=== PATIENT | female | born 1965 | race Caucasian/White ===

== ENCOUNTER 2023-07-15 09:34 | Outpatient (CLI) | payer OTHER, SELFPAY ==
--- NOTE | 2023-07-15 09:36 | CT_ITS ---
FINAL REPORT TECHNIQUE: Thin section axial CT images of the facial bones and sinuses were obtained without contrast. Coronal reformatted images were also obtained.This study was performed with techniques to keep radiation doses as low as reasonably achievable, (ALARA). Individualized dose reduction techniques using automated exposure control or adjustment of mA and/or kV according to the patient''''s size were employed. CLINICAL HISTORY: Sinusitis FINDINGS: There is paradoxical right middle turbinate noted. There is no evidence of mucosal thickening. No fluid levels are identified. The ostiomeatal units have an unremarkable appearance. The nasal septum is in the midline. No fracture or acute bony abnormality is identified. IMPRESSION: No focal abnormality identified of the sinuses. Reviewed, Interpreted and Dictated by Florencio Lott III, MD Transcribed by Stacie Matthews Authenticated and [facility]
== END 2023-07-15 23:59 ==
LOC: RAD 09:36
PROVIDERS: Visit Provider Nurse Practitioner
DX: J32.9 Chronic sinusitis, unspecified (principal); F17.290 Nicotine dependence, other tobacco product, uncomplicated
CPT/HCPCS: 70486

== ENCOUNTER 2024-03-30 14:06 | Outpatient (CLI) | payer OTHER, SELFPAY ==
--- NOTE | 2024-03-30 14:09 | XR_ITS ---
PROCEDURE INFORMATION: Exam: XR Left Clavicle, Complete Exam date and time: 03/30/2024 2:21 PM Age: 58 years old Clinical indication: Pain; Shoulder; Left; Additional info: Pain, left clavicle TECHNIQUE: Imaging protocol: Radiologic exam of the left clavicle. Complete exam. Views: Any number of views. COMPARISON: CR XR CLAVICLE LT 03/30/2024 2:21 PM FINDINGS: Bones/joints: No acute fracture or malalignment. No worrisome lytic or blastic osseous lesion. No appreciable cortical erosion or periosteal reaction. Joint spaces are preserved. Soft tissues: 6 mm calcification projecting over the rotator cuff footplate. IMPRESSION: 1. No acute fracture or malaligment. 2. Calcific tendinitis of the shoulder.
--- NOTE | 2024-03-30 14:09 | XR_ITS ---
PROCEDURE INFORMATION: Exam: XR Chest Exam date and time: 03/30/2024 2:21 PM Age: 58 years old Clinical indication: Pain; Left-sided; Additional info: Chest pain, left upper chest TECHNIQUE: Imaging protocol: Radiologic exam of the chest. Views: 2 views. COMPARISON: CR XR CLAVICLE LT 03/30/2024 2:21 PM FINDINGS: Lungs: Unremarkable. No consolidation. Pleural spaces: Unremarkable. No pleural effusion. No pneumothorax. Heart/Mediastinum: Unremarkable. No cardiomegaly. Bones/joints: Unremarkable. IMPRESSION: No acute findings.
[2024-03-30 17:55] LABS: Erythrocyte Sedimentation Rate 13 mm/hr (0-30)
== END 2024-03-30 23:59 | disposition home or self-care (01) ==
LOC: LAB.DROPOF 14:07
PROVIDERS: PCP Family Medicine; Visit Provider Family Medicine
DX: M89.8X1 Other specified disorders of bone, shoulder (principal); E78.5 Hyperlipidemia, unspecified
CPT/HCPCS: 71046; 73000; 85651; 86140

== ENCOUNTER 2024-04-03 07:35 | Day surgery (SDC) | payer OTHER, SELFPAY ==
[2024-03-28 17:01] VITALS: BMI 21.8
[2024-04-03] MEDS: LACTATED RINGERS 1000ML 1,000 ML 25 ML IV (08:17)
[2024-04-03 08:19] VITALS: BP 103/74; PULSE 70; RESP 18; TEMP 36.2; O2SAT 93
--- NOTE | 2024-04-03 08:44 | EXP.ANES.CKL ---
[facility] Disclaimer: The information contained in this section may have been updated after the patient was seen, as this information can be updated by other users. Medical History Myalgia Left-sided chest wall pain Pain of left clavicle Migraine Menopausal symptoms Screening for colon cancer Osteoarthritis Abnormal mammogram History of cervical cancer Eczema HLD (hyperlipidemia) Surgical History History of loop electrical excision procedure (LEEP) H/O tubal ligation [place] teeth extracted Family History Other Cancer Coronary artery disease Heart attack Hyperlipidemia Hypertension Social History Smoking Status: Current every day smoker tobacco type: e-cigarettes alcohol intake: current alcohol intake frequency: holidays/special occasions only substance use type: denies use current occupational status: employed Travel in the last 8 weeks: None [facility] Anesthesia Checklist Patient Identification Patient Identification: Arm Band Structural Data Admitted From: Home Planned Operative Procedure/s: Colonoscopy Consent for Planned Operative Procedure(s) Verified: Yes Verified Documents: Surgical Consent and History and Physical NPO Status Verified Time NPO: 00:00 Additional verifications Anesthesia Reactions: No Airway Assessment Mallampati Score:: Class II C-Spine Mobility Assessed: Yes TMJ Mobility Assessed: Yes Dentition: Good Dentition Neurological Assessment Level of Consciousness: Awake, Alert and Appropriate Anesthesia Plan Anesthesia Risk discussed: Yes Anesthesia Plan: Verified ASA Class: II Anesthesia Type: MAC
[2024-04-03 09:32] VITALS: O2SAT 93
--- NOTE | 2024-04-03 09:33 | P.HP_ITS ---
History of Present Illness *Admission Date: 04/03/24 *Reason for visit:: Screening *History of present illness: Mrs. Montilla is a 58-year-old female who is here for screening for colon cancer/initial screening. The examination is deemed medically necessary for colonoscopy. The patient has been seen, interviewed and examined prior to the procedure by both myself and the anesthesia provider. [facility] Disclaimer: The information contained in this section may have been updated after the patient was seen, as this information can be updated by other users. Medical History Myalgia Left-sided chest wall pain Pain of left clavicle Migraine Menopausal symptoms Screening for colon cancer Osteoarthritis Abnormal mammogram History of cervical cancer Eczema HLD (hyperlipidemia) Surgical History History of loop electrical excision procedure (LEEP) H/O tubal ligation [place] teeth extracted Family History Other Cancer Coronary artery disease Heart attack Hyperlipidemia Hypertension Social History (Updated 04/03/24 @ 08:45 by Rambo Bacon CRNA) Smoking Status: Current every day smoker tobacco type: e-cigarettes alcohol intake: current alcohol intake frequency: holidays/special occasions only substance use type: denies use current occupational status: employed Travel in the last 8 weeks: None Review of Systems Review of Systems Review of systems (narrative): Negative *Cardiovascular Comments: Negative *Gastrointestinal Comments: Negative *Genitourinary Comments: Negative *Musculoskeletal Comments: Negative *Neurologic Comments: Negative Meds Home Medications and Allergies Home Medications ?Medication ?Instructions ?Recorded ?Confirmed ?Type clobetasol 0.05 % topical cream 1 applic topical DAILY Skin 06/21/23 04/03/24 History Condition levocetirizine 5 mg tablet 5 mg PO DAILY 06/21/23 04/03/24 History meloxicam 15 mg tablet 15 mg PO DAILY 06/21/23 04/03/24 History urea 40 % topical cream 1 applic topical DAILYP PRN Skin 06/21/23 04/03/24 History Condition ezetimibe 10 mg tablet 10 mg PO DAILY #30 tabs 01/10/24 04/03/24 Rx fluticasone propionate 50 2 spray intranasal DAILY #16 grams 02/29/24 04/03/24 Rx mcg/actuation nasal spray,suspension dupilumab 200 mg/1.14 mL 300 mg SQ WEEKLY 03/28/24 04/03/24 History subcutaneous pen injector (Dupixent) sumatriptan succinate 25 mg tablet See Rx Instructions PO .COMPLEX #9 03/30/24 04/03/24 Rx tabs New Prescriptions to Start Prescriptions: Allergies Allergy/AdvReac Type Severity Reaction Status Date / Time No Known Allergies Allergy Verified 03/30/24 13:06 Exam Data for Last 24 hours Vital signs and Labs for Last 24 Hours: Temp Pulse Resp BP Pulse Ox O2 Del Method 97.2 F L 70 18 103/74 L 93 L Room Air 04/03/24 08:19 04/03/24 08:19 04/03/24 08:19 04/03/24 08:19 04/03/24 08:19 04/03/24 08:19 *Routine HEENT Exam Head: Present normocephalic Eye: Present EOMI and PERRL ENT: Present mucous membranes moist *Routine Neck Exam Neck: Present supple *Routine Respiratory Exam Respiratory: Present CTA bilaterally *Routine Cardiovascular Exam Cardiovascular: Present RRR *Routine Abdominal Exam Abdominal: Present soft and normoactive bowel sounds; Absent tenderness *Routine Rectal Exam Rectal:: deferred *Routine Genitalia Exam Genitalia:: deferred *Routine Extremities Exam Extremities: Absent cyanosis, clubbing or edema *Routine Skin Exam Skin: Present warm; Absent rash *Routine Neurological Exam Neurological: Present alert and oriented X3 Assessment and Plan *Assessment and plan (1) Screening for colon cancer: Status: Acute Category: Medical Code(s): Z12.11 - Encounter for screening for malignant neoplasm of colon Plan A/P: 1. Screening for colon cancer is the preprocedural diagnosis. The patient will be anesthetized/sedated using MAC sedation. The patient has been seen and examined. Cardiac and lung assessment prior to the examination is stable. Proceed with planned colonoscopy
--- NOTE | 2024-04-03 09:41 | HMH.PROCNOTE ---
[facility] Procedure Note Date: 04/03/24 Time: 09:59 Procedure Note:: Colonoscopy Procedure Report: Colonoscopy with cold snare polypectomy Endoscopist: Gary Johnson II, MD Referring physician: Dennis Contreras MD Date of Procedure: April 03, 2024 Equipment: Olympus 190 variable stiffness pediatric colonoscope Sedation: MAC sedation Indication: Mrs. Montilla is a 58-year-old female who is here for initial screening colonoscopy. She reports no abdominal pain, weight loss, change in her bowel habits or rectal bleeding. She reports no family history of colon cancer. Procedure: Prior to the procedure, a history and physical exam was performed, and patient's medications and allergies were reviewed. The risks, benefits and alternatives of the sedation and procedure were discussed with the patient. All questions were answered and informed consent was obtained. The patient was brought to the procedure room. Patient identification and proposed procedure were verified by the physician and the nurse. The patient was placed in a left lateral decubitus position and the scope was passed under direct vision. Throughout the procedure, the patient's blood pressure, pulse, and oxygen saturations were monitored continuously. The colonoscopy was accomplished without difficulty. The patient tolerated the procedure well. Findings: On digital rectal examination there was normal rectal tone. There were no external hemorrhoids. The colonoscope was introduced through the anal canal to the rectum and advanced to the cecum. The ileocecal valve and appendiceal orifice were identified. The scope was advanced a short distance into the ileum which appeared grossly normal. The scope was then withdrawn into the colon. There were 2 polyps (4 and 5 mm) in the cecum that were both removed via cold snare polypectomy. The remaining cecum, ascending, transverse, descending, sigmoid and rectum were grossly normal. There were no mucosal abnormalities identified. Upon retroflexion within the rectum there were grade 1 internal hemorrhoids.The preparation was excellent throughout with [place] Preparation Score of 9. The cecal time was 12 minutes. Impression: 1. Diminutive cecal polyps x 2 2. Grade 1 internal hemorrhoids Plan: I will follow-up the polyp histology and recommend repeat surveillance colonoscopy again in 7 years if the polyps are adenomatous. I would continue psyllium bulking fiber supplementation on a maintenance basis.
[2024-04-03 10:04] VITALS: BP 89/45; PULSE 87; RESP 16; TEMP 36.2; O2SAT 100
[2024-04-03 10:14] VITALS: BP 117/82; PULSE 87; RESP 16; O2SAT 99
[2024-04-03 10:24] VITALS: BP 115/76; PULSE 77; RESP 16; O2SAT 98
[2024-04-03 10:31] VITALS: BP 119/71; PULSE 84; RESP 16; O2SAT 100
== END 2024-04-03 10:34 | disposition home or self-care (01) ==
PROVIDERS: PCP Family Medicine; Visit Provider Internal Medicine Gastroenterology
PROC: (CPT 45385; principal; 2024-04-03 09:30)
DX: K63.5 Polyp of colon (principal); K64.0 First degree hemorrhoids; Z12.11 Encounter for screening for malignant neoplasm of colon
CPT/HCPCS: 45385; J7120

== ENCOUNTER 2024-07-04 12:44 | Outpatient (RCR) | payer OTHER, SELFPAY | END 2024-07-04 23:59 | disposition home or self-care (01) | LOC: PT 12:44 | PROVIDERS: Visit Provider Physician Assistant | DX: M75.82 Other shoulder lesions, left shoulder (principal); M19.012 Primary osteoarthritis, left shoulder; S46.812A Strain of other muscles, fascia and tendons at shoulder and upper arm level, left arm, initial encounter | CPT/HCPCS: 97163 ==

== ENCOUNTER 2024-07-21 13:00 | Outpatient (RCR) | payer OTHER, SELFPAY | END 2024-07-21 23:59 | disposition home or self-care (01) | LOC: PT 13:00 | PROVIDERS: Visit Provider Physician Assistant | DX: M75.82 Other shoulder lesions, left shoulder (principal); M19.012 Primary osteoarthritis, left shoulder; S46.812A Strain of other muscles, fascia and tendons at shoulder and upper arm level, left arm, initial encounter | CPT/HCPCS: 20560; 97014; 97110; 97530; G0283 ==

== ENCOUNTER 2024-10-05 13:23 | Outpatient (CLI) | payer OTHER, SELFPAY ==
[2024-10-05 19:15] LABS: Albumin/Globulin Ratio 1.7 (1.1-1.8); Alkaline Phosphatase 59 U/L (38-126); Anion Gap 4.2 mEq/L (5-15); Bilirubin,Total 0.4 mg/dl (0.2-1.3); Blood Urea Nitrogen 20 mg/dl (7-17); Calcium 9.2 mg/dl (8.4-10.2); Carbon Dioxide 29 mmol/L (22.0-30.0); Chloride 105 mmol/L (98-107); Cholesterol 298 mg/dl (140-200); Estimated Glomerular Filt Rate 74 ml/min (>60); GFR (African American) 89 ML/MIN (>60); Globulin 2.4 g/dL (1.3-3.2); Glucose 87 mg/dl (74-100); HDL Cholesterol 100 mg/dl (40-60); Potassium 4.2 mmoL/L (3.5-5.1); Sodium 134 mmol/L (136-145); Total Protein,Serum 6.4 g/dl (6.3-8.2); Triglycerides 137 mg/dl (30-150); VLDL Cholesterol 27 mg/dL (0-40)
[2024-10-05 19:20] LABS: Alanine Aminotransferase 14 U/L (12-78); Aspartate Amino Transferase 20 U/L (14-36)
== END 2024-10-05 23:59 | disposition home or self-care (01) ==
LOC: LAB.DROPOF 10-06 12:46
PROVIDERS: PCP Family Medicine; Visit Provider Family Medicine
DX: E78.5 Hyperlipidemia, unspecified (principal)
CPT/HCPCS: 80053; 80061

== ENCOUNTER 2024-11-20 10:48 | Outpatient (CLI) | payer OTHER, SELFPAY ==
--- NOTE | 2024-11-20 10:51 | XR_ITS ---
FINAL REPORT TECHNIQUE: Chest PA & Lateral CLINICAL HISTORY: jvd, smoker, cough COMPARISON: None FINDINGS: 2 views of the chest were performed. The heart size is normal. The mediastinum is within normal limits. There is no acute cardiopulmonary process. There are no pleural effusions. There is no pneumothorax. The bony thorax appears intact. IMPRESSION: No acute cardiopulmonary process. Reviewed, Interpreted and Dictated by Hoang Antonio MD Transcribed by Kianna Flores Authenticated and [facility]
[2024-11-20 11:33] LABS: Basophils # 0.1 K/mm3 (0-0.2); Basophils % 0.4 % (0.1-2.0); Eosinophils % 0.2 % (0.1-12.0); Hematocrit 41.3 % (37.0-47.0); Immature Granulocytes % 0.7 %; Lymphocytes # 1.4 K/mm3 (0.7-4.5); Lymphocytes % 10.3 % (10-50); Mean Corpuscular HGB Conc 33.9 g/dL (31.8-35.4); Mean Corpuscular Hemoglobin 33.3 pg (27.0-31.2); Mean Corpuscular Volume 98.3 fl (81-99); Monocytes # 0.3 K/mm3 (0.1-1.0); Monocytes % 2.4 % (1.7-9.3); Nucleated Red Blood Cells # 0 10^3/uL; Nucleated Red Blood Cells % 0 %; Platelet Count 500 K/mm3 (142-424); Red Cell Distribution Width 12.9 % (11.5-17.5); Red Cell Distribution Width-SD 45.8 fL
[2024-11-20 11:56] LABS: Chloride 104 mmol/L (98-107); Potassium 4.2 mmoL/L (3.5-5.1); Sodium 141 mmol/L (136-145)
[2024-11-20 11:59] LABS: Anion Gap 9.2 mEq/L (5-15); Blood Urea Nitrogen 23 mg/dl (7-17); Calcium 9.6 mg/dl (8.4-10.2); Carbon Dioxide 32 mmol/L (22.0-30.0); Estimated Glomerular Filt Rate 86 ml/min (>60); GFR (African American) 104 ML/MIN (>60); Glucose 112 mg/dl (74-100)
[2024-11-20 12:30] LABS: Thyroid Stimulating Hormone 1.57 uIU/mL (0.465-4.68)
== END 2024-11-20 23:59 | disposition home or self-care (01) ==
LOC: LAB 10:49
PROVIDERS: PCP Family Medicine; Visit Provider Family Medicine
DX: E78.5 Hyperlipidemia, unspecified (principal); I10 Essential (primary) hypertension; R09.89 Other specified symptoms and signs involving the circulatory and respiratory systems; R06.00 Dyspnea, unspecified
CPT/HCPCS: 36415; 71046; 80048; 84443; 85025

== ENCOUNTER 2024-12-01 09:56 | Emergency (ER) | payer OTHER, SELFPAY ==
[2024-12-01] VITALS (7 sets, daily range): BP systolic 119–158; BP diastolic 74–100; PULSE 58–82; RESP 16–22; TEMP 36.4–36.8; O2SAT 99–100; BMI 21.6
--- NOTE | 2024-12-01 10:03 | ECG_ITS ---
APPROVED REPORT Exam: Resting ECG HR:69 bpm ECG Measurements Heart Rate 69 AXES ND 126 P 63 QRSd 80 QRS 49 QT 394 T 58 QTc 414 Conclusion SINUS RHYTHM WITH SINUS ARRHYTHMIA NORMAL ECG UNCONFIRMED REPORT Electronically signed by : PAUL HANEY, 12/02/2024 06:35:35
--- OUTSIDE RECORDS SUMMARY | 2024-12-01 10:06 | XMS_ITS | Encounter Summary ---
Author Organization [employer] Address [address] [place] [address] Care Team Providers Care Paper Making Machine Operator Name Role Phone Zain López PA-C Unavailable [phone] Dennis Contreras MD Primary Care Provider [phone] Freddie Mcdonald MD Unavailable Encounter Details Date Type Department Care Team (Late st Contact Info) Description 10/11/2024 Orders Only [facility] Orthopedics - [address] [address] Freddie Mcdonald MD [address] [place] [address] Traumatic rupture of supraspinatus tendon of left shoulder, initial encounter; Injury of left shoulder, initial encounter Social History Tobacco Use Types Packs/Day Years Used Date Smoking Tobacco: Former Cigarettes 2009 Smokeless Tobacco: Never Comments:vapes Alcohol Use Standard Drinks/Week Comments Never 0 (1 standard drink = 0.6 oz pur e alcohol) Interpersonal Safety Answer Date Record ed Family or friends hurt you Not on file 06/18 Family or friends insult you Not on file 05/2024 Family or friends threaten you Not on file 0 06/18/2023 Family or friends scream or curse at you Not on file 06/18/2023 Housing Stability Answer Date Recorded Living situation today Not on file Living situation problems Not on file 2023 Family and Community Support Answer Yifan e Recorded Help with Day to Day Activities Not on file 06/18/2023 Feeling Lonely or Isolated Not on file 06/18 Educational Attainment Answer Date Jelani rded Speak language other than Kyrgyz at home Not on file 06/18/2023 Want help with school or training Not on file 06/18/2023 Depression Answer Date Recorded PHQ-2 Risk Not on file 06/18/2023 Disabilities Answer Date Recorded Difficulty concentrating Not on file 024 Difficulty doing errands alone Not on file 0 06/18/2023 Substance Use Answer Date Recorded Used prescription meds for non-medical reasons N ot on file 06/18/2023 Used illegal drugs past 12 months Not on file 06/18/2023 Comments No Sex and Gender Information Value Date Recorded Sex Assigned at Not on file Legal Sex Female 6:40 PM CDT Gender Identity Not on file Sexual Orientation Not on file documented as of this encounter Plan of Treatment Not on file documented as of this encounter Procedures Procedure Name Priority Date/Time Associated Diagnosis Comments MR UPPER EXTREMITY JOINT ONLY WITHOUT IV CONTRAST LEFT Routine 08/25/2024 4:46 PM EDT Traumatic rupture of supraspinatus tendon of left shoulder, initial encounter Injury of left shoulder, initial encounter documented in this encounter Results * MR upper extremity joint only without IV contrast left side (08/25/2024 4:46 PM EDT) Anatomical Region Laterality Modality Upper Extremity, Shoulder, Elbow, Wrist Magnetic Resonance Freddie Mcdonald MD IMG MRI ORDERABLES Final Result documented in this encounter Visit Diagnoses Diagnosis Traumatic rupture of supraspinatus tendon of left shoulder, initial encounter Injury of left shoulder, initial encounter documented in this encounter Care Teams Paper Making Machine Operator Relationship Specialty Start Date End Date Dennis Contreras MD [address] [place] [address] PCP - General Family Medicine 12/02/23 Zain López PA-C [address] [place] [address] Orthopedic Surgery 07/27/23 Freddie Mcdonald MD [address] [place] [address] Sports Medicine 06/26/24 documented as of this encounter
--- OUTSIDE RECORDS SUMMARY | 2024-12-01 10:06 | XMS_ITS | Encounter Summary ---
Author Organization [employer] Address [address] [place] [address] Care Team Providers Care Lining Printer Name Role Phone Adelaide Clements MD Primary Care Provider [phone] Zain López PA-C Unavailable [phone] Dennis Contreras MD Primary Care Provider + [phone] Freddie Mcdonald MD Unavailable Reason for Visit * Reason Comments Medication Refill Encounter Details Date Type Department Care Team (Late st Contact Info) Description 11/19/[address] [facility] Primary Care [address] [place] [address] Nohelia Esquivel APRN [address] [place] [address] Social History Tobacco Use Types Packs/Day Years [...] Recorded Living situation today Not on file 01/12/202 4 Living situation problems Not on file 2023 Family and Community Support Answer Yifan e Recorded Help with Day to Day Activities Not on file 06/18/2023 Feeling Lonely or Isolated Not on file 06/18 Educational Attainment Answer Date Jelani rded Speak language other than Lao at home Not on file 06/18/2023 Want [...] on file documented as of this encounter Visit Diagnoses Not on filedocumented in this encounter Care Teams Lining Printer Relationship Specialty Start Date End Date Adelaide Clements MD PCP - General Family Medicine 01/20/23 12/01/23 Dennis Contreras MD [address] [place] [address] PCP - General Family Medicine 12/02/23 Zain López PA-C [address] [place] [address] Orthopedic Surgery 07/27/23 Freddie Mcdonald MD [address] [place] [address] Sports Medicine 06/26/24 documented as of this encounter
--- OUTSIDE RECORDS SUMMARY | 2024-12-01 10:06 | XMS_ITS | Encounter Summary ---
Author Organization [employer] Address [address] [place] [address] Care Team Providers Care Compliance Testing Analyst Name Role Phone Adelaide Clements MD Primary Care Provider [phone] Zain López PA-C Unavailable [phone] Dennis Contreras MD Primary Care Provider + [phone] Freddie Mcdonald MD Unavailable Reason for Visit * Reason Comments Medication Refill Encounter Details Date Type Department Care Team (Late st Contact Info) Description 02/21/2023 Refill [facility] Primary Care - [address] [address] Hasmukh Workman MD [address] [facility] [address] [place] [address] Social History Tobacco Use Types Packs/Day Years Used Date Smoking Tobacco: Former Cigarettes 2009 Smokeless Tobacco: Never Alcohol Use Standard Drinks/Week Comments Never 0 (1 standard drink = 0.6 oz pur e alcohol) Comments Unknown Sex and Gender Information Value Date Recorded Sex Assigned at Not on file Legal Sex Female 6:40 PM CDT Gender Identity Not on file Sexual Orientation Not on file COVID-19 Exposure Response Date Recorded In the last 10 days, have yo u been in contact with someone who was confirmed or suspected to have Coronavirus/COVID-19? No / Unsure 01/26/2023 2:27 PM EDT documented as of this encounter Plan of Treatment Not on file documented as of this encounter Visit Diagnoses Not on filedocumented in this encounter Care Teams Compliance Testing Analyst Relationship Specialty Start Date End Date Adelaide Clements MD PCP - General Family Medicine 01/20/23 12/01/23 Dennis Contreras MD [address] [place] [address] PCP - General Family Medicine 12/02/23 Zain López PA-C [address] [place] [address] Orthopedic Surgery 07/27/23 Freddie Mcdonald MD [address] [place], [place] [id number] Sports Medicine 06/26/24 documented as of this encounter
--- OUTSIDE RECORDS SUMMARY | 2024-12-01 10:06 | XMS_ITS | Encounter Summary ---
Author Organization [employer] Address [address] [place] [address] Care Team Providers Care Senior Web Engineer Name Role Phone Adelaide Clements MD Primary Care Provider [phone] Zain López PA-C Unavailable [phone] Dennis Contreras MD Primary Care Provider + [phone] Freddie Mcdonald MD Unavailable Reason for Referral * Mammography (Routine) - Closed Specialty Diagnoses / Procedures Referred By Eldaia gagnon Referred To Contact Diagnoses Visit for screening mammogram Procedures MM digital mammo screen with mariangel bilateral Nohelia Esquivel APRN [address] [place] [address] Phone: tel: fax: Referral ID Status Reason Start Date Expiration Date Visits Re quested Visits Authorized [id number] Closed 08/02/2023 01/29/2024 1 1 Encounter Details Date Type Department Care Team (Late st Contact Info) Description 08/02/2023 Outside Orders [facility] Scheduling [address] [place] [address] Nohelia Esquivel APRN [address] [place] [address] Visit for screening mammogram (Primary Dx) Social History Tobacco Use Types Packs/Day Years Used Date Smoking Tobacco: Former Cigarettes 30 2009 Smokeless Tobacco: Never Alcohol Use Standard [...] file 2023 Family and Community Support Answer Yiafn e Recorded Help with Day to Day Activities Not on file 06/18/2023 Feeling Lonely or Isolated Not on file 06/18 Educational Attainment Answer Date Jelani rded Speak language other than Tajik at home Not on file 06/18/2023 Want [...] 12 months Not on file 06/18/2023 Comments Unknown Sex and Gender Information Value Date Recorded Sex Assigned at Not on file Legal Sex Female 6:40 PM CDT Gender Identity Not on file Sexual Orientation Not on file documented as of this encounter Plan of Treatment Not on file documented as of this encounter Results * (ABNORMAL) MM digital mammo screen with mariangel bilateral (10/28/2023 2:08 PM EDT) Anatomical Region Laterality Modality Breast Bilateral Mammography 11/04/2023 4:00 PM EDT Impressions 11/04/2023 4:47 PM EDT FINAL IMPRESSION: Right breast asymmetry. BI-RADS: BI-RADS Category 0: Need Additional Imaging Evaluation and/or Prior Mammograms for Comparison RECOMMENDATIONS: Right diagnostic mammogram. Further evaluation with full field ML and spot compression MLO mariangel HD views is recommended, possibly followed by ultrasound. This report will serve as an order for any recommended procedure(s). A letter including results and recommendations was sent to the patient. Density notification was provided to patients with dense breast tissue pattern. Patient information entered into a reminder system with a target due date for the next mammogram. At our facility, a kiana marker is positioned over a visible skin lesion and a linear marker is used to indicate a scar. A triangular marker is placed on a self reported palpable finding. Note: Mammography does not detect approximately 10-15% of breast cancers. An annual clinical breast exam by the patient's breast care physician and regular monthly self breast exams by the patient are integral parts of breast cancer screening, in addition to annual mammography. A normal mammogram does not completely exclude the presence of breast cancer, especially if there is an abnormal finding on physical exam. When clinically indicated, a biopsy should not be deferred because of a normal mammogram report. Narrative 11/04/2023 4:47 PM EDT PROCEDURE: Bilateral digital screening mammogram with tomosynthesis. REASON FOR EXAM: Routine screening. FAMILY HISTORY: Maternal grandmother with history of breast cancer. COMPARISON STUDY: 3 mammograms between July 2022 and February 2018. FINDINGS: Craniocaudal and mediolateral oblique images were obtained in 2D, C-view, and 3D modes. This examination was reviewed with the benefit of computer-aided detection (CAD). There are scattered areas of fibroglandular density. There is an asymmetry in the superior posterior third of the right breast on MLO view. Nohelia Esquivel APRN [facility] ORDERAB[place] Final Result documented in this encounter Visit Diagnoses Diagnosis Visit for screening mammogram- Primary Visit for screening mammogram documented in this encounter Care Teams Senior Web Engineer Relationship Specialty Start Date End Date Adelaide Clements MD PCP - General Family Medicine 01/20/23 12/01/23 Dennis Contreras MD [address] [place] [address] PCP - General Family Medicine 12/02/23 Zain López PA-C [address] [place] [address] Orthopedic Surgery 07/27/23 Freddie Mcdonald MD [address] [place] [address] Sports Medicine 06/26/24 documented as of this encounter
--- OUTSIDE RECORDS SUMMARY | 2024-12-01 10:06 | XMS_ITS | Encounter Summary ---
Author Organization [employer] Address [address] [place] [address] Care Team Providers Care Visual And Stock Associate Name Role Phone Alejandrina Flores MD Primary Care Provider + Adelaide Clements MD Primary Care Provider [phone] Zain López PA-C Unavailable [phone] Dennis Contreras MD Primary Care Provider + [phone] Freddie Mcdonald MD Unavailable Reason for Referral * Mammography (Routine) - Closed Specialty Diagnoses / Procedures Referred By Eladia t Referred To Contact Diagnoses Encounter for screening mammogram for malignant neoplasm of breast Procedures MM digital mammo screen with mariangel bilateral Alejandrina Flores MD [address] [place] [address] Phone: tel: fax: Referral ID Status Reason Start Date Expiration Date Visits Re quested Visits Authorized [id number] Closed 06/29/2022 12/26/2022 1 1 Encounter Details Date Type Department Care Team (Late st Contact Info) Description 06/29/2022 Outside Orders [facility] Central Scheduling [address] [place] [address] Alejandrina Flores MD [address] [place] [id number] Encounter for screening mammogram for malignant neoplasm of breast (Primary Dx) Social History Tobacco Use Types Packs/Day Years Used Date Smoking Tobacco: Former Cigarettes 1 2009 Smokeless Tobacco: Never Alcohol Use Standard [...] documented as of this encounter Results * MM digital mammo screen with mariangel bilateral (07/17/2022 1:29 PM EST) Anatomical Region Laterality Modality Breast Bilateral Mammography 07/17/2022 5:43 PM EST Impressions 07/17/2022 5:50 PM EST FINAL IMPRESSION: ACR BI-RADS 1: Negative. RECOMMENDATIONS: Annual screening mammography. A letter including results and recommendations was sent to the patient. Density notification was included for patients with pattern 3 or 4 breast tissue. Patient information was entered into a reminder system with a target due date for the next mammogram. At our facility, a [place] marker is positioned over a visible skin lesion and a linear marker is used to indicate a scar. A triangular marker is placed on a self reported palpable finding. Narrative 07/17/2022 5:50 PM EST PROCEDURE: Digital screening mammogram with Digital Breast Tomosynthesis (DBT). REASON FOR EXAM: Routine screening. FAMILY HISTORY: Intermediate Risk family history of breast cancer. COMPARISON STUDY: 2017 from [facility] FINDINGS: Craniocaudal and mediolateral oblique images of both breasts were obtained in 2D and DBT modes. Synthesized views were reconstructed from DBT data. The breast tissue has pattern b (scattered fibroglandular densities). There is no evidence of dominant mass, architectural distortion, or suspicious calcifications. The mammogram was interpreted with the benefit of computer aided detection (CAD). Alejandrina Flores MD IMG MAMMOGRAPHY ORDERABL ES Final Result documented in this encounter Visit Diagnoses Diagnosis Encounter for screening mammogram for malignant neoplasm of breast- Primary Encounter for screening mammogram for malignant neoplasm of breast documented in this encounter Care Teams Visual And Stock Associate Relationship Specialty Start Date End Date Alejandrina Flores MD [address] [place] [address] PCP - General Obstetrics and Gynecology 07/17/2201/05 Adelaide Clements MD [address] [place] [address] PCP - General Family Medicine 01/20/23 12/01/23 Dennis Contreras MD [address] [place] [address] PCP - General Family Medicine 12/02/23 Zain López PA-C [address] [place] [address] Orthopedic Surgery 07/27/23 Freddie Mcdonald MD [address] [place] [address] Sports Medicine 06/26/24 documented as of this encounter
--- OUTSIDE RECORDS SUMMARY | 2024-12-01 10:06 | XMS_ITS | Referral Summary ---
Author Organization [employer] Address [address] [place] [address] Care Team Providers Care Radius Grinder Name Role Phone Zain López PA-C Unavailable [phone] Dennis Contreras MD Primary Care Provider [phone] Freddie Mcdonald MD Unavailable Encounters Date Type Department Care Team Description 10/11/2024 Orders Only [facility] Orthopedics [address] [phone] Freddie Mcdonald MD Traumatic rupture of supraspinatus tendon of left shoulder, initial encounter; Injury of left shoulder, initial encounter 09/28/2024 1:15 PM EDT Office Visit [facility] Orthopedics [facility] [address] [place] [address] Freddie Mcdonald MD Nontraumatic incomplete tear of left rotator cuff (Primary Dx) 09/14/2024 1:30 PM EDT Office Visit [facility] - [facility] [address] [facility] [address] [place] [address] Alejandrina Flores MD Women's annual routine gynecological examination (Primary Dx); Postmenopausal; Hormone replacement therapy (HRT) 08/31/2024 2:15 PM EDT Office Visit [facility] Orthopedics [facility] [address] [place] [address] Freddie Mcdonald MD Nontraumatic incomplete tear of left rotator cuff (Primary Dx) from Last 3 Months Allergies Active Allergy Reactions Criticality Noted Date Comments Latex 09/24/2021 Medications clobetasoL (TEMOVATE) 0.05 % cream Apply topically 2 (two) times daily as needed Apply topically to affected area twice daily.. 60 g 11 3 Active neomycin-bacitra etf-qelhatrcz-xa drocortisone (CORTISPORIN) 3.5-400-10,000 mg-unit/g-1% ophth ointmentIndicati ons:[place] eye disease of right eye Place 1 g into both eyes 2 (two) times daily. 3.5 g 3 3 Active urea (CARMOL) 40 % Crea topical cream Apply topically. 4 Active fluticasone propionate (FLONASE) 50 mcg/actuation nasal sprayIndications :Allergic rhinitis, unspecified seasonality, unspecified trigger SPRAY 1 SPRAY IN EACH NOSTRIL ONCE DAILY 16 mL 4 Active amLODIPine (NORVASC) 5 MG tablet Take 1 tablet (5 mg total) by mouth daily. Active Dupixent Pen 300 mg/2 mL pnij 5 Active Active Problems Problem Noted Date Diagnosed Date Primary osteoarthritis of right knee 07/28/2023 Internal derangement of right knee 07/28/2023 Staphylococcus infection 06/12/2021 Basal cell carcinoma (BCC) 04/17/2021 Solar lentiginosis 04/17/2021 Encounter for general adult medical examination without abnormal findings 01/30/2021 Fatigue 01/30/2021 Intention tremor 01/30/2021 Onychomycosis 01/30/2021 Encounter for screening for malignant neoplasm o f colon 01/30/2021 Arthritis 12/20/2020 Migraine headache 12/20/2020 Encounter for gynecological examination (general) (routine) without abnormal findings 12/20/2020 Hormone replacement therapy 03/27/2020 Abnormal uterine bleeding 07/21/2019 Irritation of vulva 07/21/2019 Postmenopausal bleeding 07/21/2019 Encounter for screening for lipoid disorders Social History Tobacco Use Types Packs/Day Years Used Date Smoking Tobacco: Former Cigarettes 2 30 1 980 - 2010 Smokeless Tobacco: Never Tobacco Cessation:Counseling Given: Not Answered Comments:vapes Alcohol Use Standard Drinks/Week Comments Never [...] Date Jelani rded Speak language other than Czech at home Not on file 06/18/2023 Want [...] on file Sexual Orientation Not on file Last Filed Vital Signs Vital Sign Reading Time Taken Comments Blood Pressure 125/87 09/28/2024 1:15 PM EDT Pulse 73 09/28/2024 1:15 PM EDT Temperature 35.6 C (96 F) 02/03/2023 9:01 AM EDT Respiratory Rate 18 06/22/2024 1:38 PM EST Oxygen Saturation 98% 06/11/2023 11:33 AM EST Inhaled Oxygen Concentration - - Weight 59.4 kg (131 lb) 09/28/2024 1:14 PM EDT Height 162.6 cm (5' 4 ) 09/28/2024 1:14 PM EDT Body Mass Index 22.49 09/28/2024 1:14 PM EDT Plan of Treatment Not on file Procedures Procedure Name Priority Date/Time Associated Diagnosis Comments POCT HEMOGLOBIN Routine 09/14/2024 1:45 PM EDT Women's annual routine gynecological examination MM DIGITAL MAMMO DIAGNOSTIC WITH ALISA RIGHT Routine 06/08/2024 1:51 PM EST Abnormal mammogram LIQUID-BASED PAP SMEAR, SCREENING AP Routine 04/28/2019 12:00 AM EST from Last 3 Months or Most Recently Relevant to Health Maintenance Results * POCT Hemoglobin (09/14/2024 1:45 PM EDT) Hemoglobin 13.6 Blood 09/14/2024 1:45 PM EDT Alejandrina Flores MD POINT OF CARE TEST ORDER ANTONETTE Final Result * MM digital mammo diagnostic with alisa right (06/08/2024 1:51 PM EST) Anatomical Region Laterality Modality Breast Right Mammography 06/08/2024 1:48 PM EST Impressions 06/08/2024 1:51 PM EST FINAL IMPRESSION: Stable mammogram. No findings suspicious for malignancy. Bi-RADS: ACR BI-RADS 2: Benign findings. RECOMMENDATIONS: Yearly screening mammography, due in October 2024 This report will serve as the order for the recommended imaging studies/procedures. At our facility, a [place] marker is positioned over a visible skin lesion and a linear marker is placed over a scar. The results and recommendations were discussed with the patient on the day of her appointment. In addition, a written report in lay terms, including density notification, was given to the patient. Patient information was entered into a reminder system with a target due date for the next mammogram. Narrative 06/08/2024 1:51 PM EST PROCEDURE: Right diagnostic mammogram with Digital Breast Tomosynthesis (DBT). REASON FOR EXAM: 6 month follow-up ordered from the examination in November 2023. Asymmetric tissue in the superior right breast is being followed. FAMILY HISTORY: Intermediate risk family history of breast cancer COMPARISON STUDY: [facility] November 2023 through 2018 FINDINGS: Craniocaudal and mediolateral oblique images of the right breast were obtained in 2D and DBT modes. Synthesized views were reconstructed from DBT data. The breast tissue has pattern b (scattered fibroglandular densities). There is no dominant mass, group of calcifications, or distortion to suggest malignancy. The asymmetric tissue in the superior breast is stable when compared to prior examinations dating back to 2018. This examination was reviewed with the benefit of computer aided detection (CAD). Cynthia Rodriguez MD IMG MAMMOGRAPHY ORDERABLES Barbie l Result * Liquid-based pap smear, screening (04/28/2019 12:00 AM EST) Genital CERVIX UTERI STRUCTURE / Unknown Historical Provider PATHOLOGY/CYTOLOGY ORDERA BLES Final Result [facility] from Last 3 Months or Most Recently Relevant to Health Maintenance Insurance [facility] PLAN [facility] Care Teams Radius Grinder Relationship Specialty Start Date End Date Dennis Contreras MD [address] [place], [place] [id number] PCP - General Family Medicine 12/02/23 Zain López PA-C [address] [place] [address] Orthopedic Surgery 07/27/23 Freddie Mcdonald MD [address] [place] [address] Sports Medicine 06/26/24
--- OUTSIDE RECORDS SUMMARY | 2024-12-01 10:06 | XMS_ITS | Encounter Summary ---
Author Organization [employer] Address [address] [place] [address] Care Team Providers Care Battery Technician Name Role Phone Adelaide Clements MD Primary Care Provider [phone] Zain López PA-C Unavailable [phone] Dennis Contreras MD Primary Care Provider + 1 Freddie Mcdonald MD Unavailable Reason for Visit * Reason Onset Date Comments Medication Refill 11/18/2023 Encounter Details Date Type Department Care Team (Late st Contact Info) Description 11/18/2023 Refill [facility] Primary Care [address] [place] [address] Nohelia Esquivel APRN [address] [place] [address] Social History Tobacco Use Types Packs/Day Years Used Date Smoking Tobacco: Former Cigarettes 30 1 2009 Smokeless Tobacco: Never Comments:vapes Alcohol Use [...] Date Jelani rded Speak language other than Beninese at home Not on file 06/18/2023 Want [...] on filedocumented in this encounter Care Teams Battery Technician Relationship Specialty Start Date End Date Adelaide Clements MD PCP - General Family Medicine 01/20/23 12/01/23 Dennis Contreras MD [address] [place] [address] PCP - General Family Medicine 12/02/23 Zain López PA-C [address] [place] [address] Orthopedic Surgery 07/27/23 Freddie Mcdonald MD [address] [place] [address] Sports Medicine 06/26/24 documented as of this encounter
--- OUTSIDE RECORDS SUMMARY | 2024-12-01 10:06 | XMS_ITS | Encounter Summary ---
Author Organization [employer] Address [address] [place] [address] Care Team Providers Care Healthcare Project Manager Name Role Phone Adelaide Clements MD Primary Care Provider [phone] Zain López PA-C Unavailable [phone] Dennis Contreras MD Primary Care Provider + [phone] Freddie Mcdonald MD Unavailable Reason for Visit * Reason Onset Date Comments Medication Refill 05/24/2023 Encounter Details Date Type Department Care Team (Late st Contact Info) Description 05/24/2023 Refill [facility] Primary Care - [address] [address] Hasmukh Workman MD [address] [facility] [address] [place] [address] Social History Tobacco Use Types Packs/Day Years [...] on filedocumented in this encounter Care Teams Healthcare Project Manager Relationship Specialty Start Date End Date Adelaide Clements MD PCP - General Family Medicine 01/20/23 12/01/23 Dennis Contreras MD [address] [place] [address] PCP - General Family Medicine 12/02/23 Zain López PA-C [address] [place] [address] Orthopedic Surgery 07/27/23 Freddie Mcdonald MD [address] [place], [place] [id number] Sports Medicine 06/26/24 documented as of this encounter
--- OUTSIDE RECORDS SUMMARY | 2024-12-01 10:06 | XMS_ITS | Encounter Summary ---
Author Organization [employer] Address [address] [place] [address] Care Team Providers Care Ostrich Farm Worker Name Role Phone Zain López PA-C Unavailable [phone] Dennis Contreras MD Primary Care Provider + Freddie Mcdonald MD Unavailable Reason for Visit * Reason Comments Medication Refill Encounter Details Date Type Department Care Team (Late st Contact Info) Description 02/16/2024 Refill [facility] Primary Care [address] [place] [address] Nohelia Esquivel APRN [address] [place] [address] Intractable migraine with aura without status migrainosus Social History Tobacco Use Types Packs/Day Years [...] Date Jelani rded Speak language other than Bulgarian at home Not on file 06/18/2023 Want [...] documented as of this encounter Visit Diagnoses Diagnosis Intractable migraine with aura without status migrainosus documented in this encounter Care Teams Ostrich Farm Worker Relationship Specialty Start Date End Date Dennis Contreras MD [address] [place] [address] PCP - General Family Medicine 12/02/23 Zain López PA-C [address] [place] [address] Orthopedic Surgery 07/27/23 Freddie Mcdonald MD [address] [place] [address] Sports Medicine 06/26/24 documented as of this encounter
--- OUTSIDE RECORDS SUMMARY | 2024-12-01 10:06 | XMS_ITS | Clinical Summary ---
Author Organization [employer] Address [address] [place] [address] Care Team Providers Care Perianesthesia Rn Name Role Phone Zain López PA-C Unavailable [phone] Dennis Contreras MD Primary Care Provider [phone] Freddie Mcdonald MD Unavailable Allergies Active Allergy Reactions Criticality Noted Date Comments Latex 09/24/2021 Medications clobetasoL (TEMOVATE) 0.05 % cream Apply topically 2 (two) times daily as needed Apply topically to affected area twice daily.. 60 g 11 3 Active neomycin-bacitra imc-etskkhbmd-gg drocortisone (CORTISPORIN) 3.5-400-10,000 mg-unit/g-1% ophth ointmentIndicati ons:[place] eye disease of right eye Place 1 [...] 07/21/2019 Encounter for screening for lipoid disorders Encounters Date Type Department Care Team Description 10/11/2024 Orders Only [facility] Orthopedics - [address] [address] Fredide Mcdonald MD Traumatic rupture of supraspinatus tendon of left shoulder, initial encounter; Injury of left shoulder, initial encounter 09/28/2024 1:15 PM EDT Office Visit [facility] Orthopedics [address] [address] Freddie Mcdonald MD Nontraumatic incomplete tear of left rotator cuff (Primary Dx) 09/14/2024 1:30 PM EDT Office Visit [facility] - [address] [place] [address] Alejandrina Flores MD Women's annual routine gynecological examination (Primary Dx); Postmenopausal; Hormone replacement therapy (HRT) 08/31/2024 2:15 PM EDT Office Visit [facility] Orthopedics [facility] [address] [place] [address] Freddie Mcdonald MD Nontraumatic incomplete tear of left rotator cuff (Primary Dx) from Last 3 Months Family History Medical History Relation Name Comments Alcohol abuse Father Breast cancer Maternal Grandmother No Known Problem Mother Relation Name Status Comments Father Maternal Grandfather Maternal Grandmother Mother Alive Social History Tobacco Use Types Packs/Day Years Used Date Smoking Tobacco: Former Cigarettes 2 2009 Smokeless Tobacco: Never Tobacco Cessation:Counseling Given: Not [...] Date Jelani rded Speak language other than Cuban at home Not on file 06/18/2023 Want [...] 09/28/2024 1:14 PM EDT Plan of Treatment Health Maintenance Due Date Last Done Comments CT Colonography 1967 Colonoscopy 1967 Colorectal Cancer Screening 1967 FOBT/FIT 1967 Fit-DNA (Cologuard) 1967 Sigmoidoscopy 1967 Depression Screening (12+) 1979 HIV Screening 09/16/1982 Hepatitis C Screening 09/16/1985 DTAP/TDAP/TD VACCINES (1 - Tdap) 09/16/1986 Lipid Panel 09/16/2012 Pneumococcal 50+ years (1 of 1 - PCV) 09/16/2017 Shingles Vaccine (Zoster) (1 of 2) 09/16/2017 Pap Smear 04/28/2022 04/28/2019 COVID-19 VACCINE (1 - 2023-2 5 season) 2024 Influenza Vaccine (Season Ended) 2025 Tobacco Cessation Counseling and Screening (12+) 09/14/2025 09/14/2024 Breast Cancer Screening 06/08/2026 06/08/19 25, 12/02/2023, 10/28/2023, Additional history exists Procedures Procedure Name Priority Date/Time Associated Diagnosis [...] recommended imaging studies/procedures. At our facility, a [place] marker is positioned over a visible skin [...] family history of breast cancer COMPARISON STUDY: [facility] November 2023 through 2017 FINDINGS: Craniocaudal and mediolateral oblique images of [...] Most Recently Relevant to Health Maintenance Insurance [facility] [place] Care Teams Perianesthesia Rn Relationship Specialty Start Date End Date Dennis Contreras MD [address] [place], [place] [id number] PCP - General Family Medicine 12/02/23 Zain López PA-C [address] [place] [address] Orthopedic Surgery 07/27/23 Freddie Mcdonald MD [address] [place] [address] Sports Medicine 06/26/24
--- NOTE | 2024-12-01 10:15 | CT_ITS ---
FINAL REPORT CLINICAL HISTORY: general dizziness FINDINGS: CT NECK ANGIO, WITHOUT AND WITH CONTRAST TECHNIQUE: Thin section axial CT with contrast with multiplanar 3D MIP reconstruction. This study was performed with techniques to keep radiation doses as low as reasonably achievable, (ALARA). Individualized dose reduction techniques using automated exposure control or adjustment of mA and/or kV according to the patient''s size were employed. NASCET criteria and technique was utilized during interpretation. Aortic arch: Arch shows no significant narrowing. Great vessel origins are widely patent. Right carotid: No significant stenosis is seen of the cervical common or internal carotid artery. Left carotid: No significant stenosis is seen of the cervical common or internal carotid artery. Vertebrals: Left vertebral artery is dominant. No significant stenosis is present. IMPRESSION: No significant stenosis of the cervical carotid arteries This study was performed using automated techniques to achieve radiation exposure as low as reasonably Reviewed, Interpreted and Dictated by Karan Ackerman MD Transcribed by Mahsa Menjivar Authenticated and . [facility]
--- NOTE | 2024-12-01 10:15 | CT_ITS ---
FINAL REPORT TECHNIQUE: Noncontrast exam This study was performed with techniques to keep radiation doses as low as reasonably achievable, (ALARA). Individualized dose reduction techniques using automated exposure control or adjustment of mA and/or kV according to the patient''s size were employed. CLINICAL HISTORY: nonspecific dizzy FINDINGS: No abnormal density is seen. Ventricles are normal. There is no hemorrhage. No mass effect is seen. Bone windows show no evidence of fracture. IMPRESSION: No acute findings Reviewed, Interpreted and Dictated by Karan Ackerman MD Transcribed by Mahsa Menjivar Authenticated and [facility]
--- NOTE | 2024-12-01 10:15 | XR_ITS ---
FINAL REPORT CLINICAL HISTORY: dizziness COMPARISON: 11/20/2024 FINDINGS: SINGLE VIEW CHEST: No acute pulmonary opacity is present. There is no evidence of effusion or pneumothorax. Mediastinum is unremarkable. Heart size is normal. IMPRESSION: No acute abnormality. Reviewed, Interpreted and Dictated by Karan Ackerman MD Transcribed by Kianna Flores Authenticated and [facility]
--- NOTE | 2024-12-01 10:15 | CT_ITS ---
FINAL REPORT CLINICAL HISTORY: general dizziness FINDINGS: CTA HEAD TECHNIQUE: Thin section axial CT with contrast with 3D MIP reconstruction This study was performed with techniques to keep radiation doses as low as reasonably achievable, (ALARA). Individualized dose reduction techniques using automated exposure control or adjustment of mA and/or kV according to the patient''s size were employed. No aneurysm is seen. Major intracranial vessels are patent without significant stenosis. . IMPRESSION: Unremarkable This study was performed using automated techniques to achieve radiation exposure as low as reasonably achievable Reviewed, Interpreted and Dictated by Karan Ackerman MD Transcribed by Mahsa Menjivar Authenticated and [facility]
--- NOTE | 2024-12-01 10:17 | ED_ITS ---
Discharge Plan Disposition Patient Disposition: Home, Self-Care Prescriptions Prescriptions: No Action levocetirizine 5 mg tablet 5 mg PO DAILY Qty: 90 3RF sumatriptan succinate 25 mg tablet See Rx Instructions PO .COMPLEX Qty: 9 11RF Rx Instructions: take 1 tab at onset of headache; if no relief may repeat 1 tab after at least 2 hrs; max = 4 tabs/24 hr PO urea 40 % cream 1 applic topical DAILYP PRN (Reason: Skin Condition) hydroxyzine pamoate 50 mg capsule 50 mg PO BID PRN (Reason: itching) Qty: 14 0RF fluticasone propionate 50 mcg/actuation spray,suspension 2 spray intranasal DAILY Qty: 16 5RF clobetasol 0.05 % cream 1 applic topical DAILY Qty: 60 1RF clotrimazole [Athlete's Foot (clotrimazole)] 1 % cream 1 applic topical BID 28 Days Qty: 30 2RF famotidine [Pepcid] 40 mg tablet 40 mg PO DAILY Qty: 7 0RF Dupixent Pen 200 mg/1.14 mL Pen Injector 300 mg SQ WEEKLY Referrals Follow up/Referrals: Nathalie Yen APRN [Primary Care Provider, Family Practice] - See instructions Kevin Vasquez MD [Staff Physician, Cardiology] - See instructions Activity Restrictions/Add. Instructions Additional Instructions/Restrictions: At this time it was felt you are safe to be discharged home. If new or worsening symptoms please do not hesitate to return the emergency department. Please call and schedule appointment with Dr. Vasquez as soon as you are able. Your calcium was barely elevated today and essentially normal and is not concerning to me but we do need to keep an eye on it in the future to make sure it does not continue to rise. Please call and schedule appointment with your family doctor to follow this and your dizziness as if it continues for significant amount of time an MRI may be necessary. Clinical Impressions Clinical Impression: Dizziness Print Language Print Language: French Discharge ED Provider: Martin Mccord General Adult HPI General Chief complaint: Dizziness Stated complaint: light headed, dizzy Time Seen by Provider: 12/01/24 10:00 Mode of Arrival: Wheelchair Source of Information: Patient Description of Symptoms (Recalled from ER Triage Doc. by RN): Patient presents to ED from her PCP's office with c/o nausea and dizziness x1 week, reports feeling faint when walking. Patient reports she recently had A URI which she was on ABX for and has been feeling unwell since. History of Present Illness HPI narrative: Patient is a 59-year-old female with no pertinent comorbidities who presents emergency department for evaluation of dizziness. History is obtained by patient and significant other at bedside. Patient was recently diagnosed with an upper and lower respiratory tract infection and was given antibiotics which she has completed last dose 3 days ago. Over the last 5 days she is experienced generalized dizziness that is worse upon standing. No trauma reported. She presented to her PCP who was concerned for fluid around her heart and sent her here for continued evaluation. No chest pain reported. No other acute complaints at this time. Please note that above description of symptoms, in this electronic medical record under categorization of recalled from ER triage doctor by RN are reflective of an initial nursing assessment, however, is not reflective of my full history and physical exam that was personally taken and clarified. Consequentially, this preceding description of symptoms, which may include the patient's categorized chief complaint in the EMR, do not reflect my personal clinical impression, and the ultimate description of history of present illness and patient stated complaints should be deferred to this section of the note. Unless stated otherwise or congruent with this section of the note, additional signs, symptoms, or incongruence should be interpreted as inaccurate with my clinical impression. Related Data Home Medications ?Medication ?Instructions ?Recorded ?Confirmed urea 40 % topical cream 1 applic topical DAILYP PRN Skin 06/21/23 11/30/24 Condition dupilumab 200 mg/1.14 mL 300 mg SQ WEEKLY 03/28/24 subcutaneous pen injector (Dupixent) Previous Rx's ?Medication ?Instructions ?Recorded fluticasone propionate 50 2 spray intranasal DAILY #16 grams 02/29/24 mcg/actuation nasal spray,suspension sumatriptan succinate 25 mg tablet See Rx Instructions PO .COMPLEX #9 03/30/24 tabs clobetasol 0.05 % topical cream 1 applic topical DAILY Skin 04/20/24 Condition #60 grams clotrimazole 1 % topical cream 1 applic topical BID fu ngus 4 05/11/24 (Athlete's Foot (clotrimazole)) weeks #30 grams levocetirizine 5 mg tablet 5 mg PO DAILY #90 tabs 06/07 09/29 hydroxyzine pamoate 50 mg capsule 50 mg PO BID PRN itc helena #14 caps 11/20/24 famotidine 40 mg tablet (Pepcid) 40 mg PO DAILY #7 tab s 11/23/24 Allergies Allergy/AdvReac Type Severity Reaction Status Date / Time Latex, Natural Rubber Allergy Rash Verified 12/01/24 10:10 [facility] Disclaimer: The information contained in this section may have been updated after the patient was seen, as this information can be updated by other users. Medical History Hypertension Myalgia Left-sided chest wall pain Pain of left clavicle Migraine Menopausal symptoms Screening for colon cancer Osteoarthritis Abnormal mammogram November 2023 History of cervical cancer Eczema HLD (hyperlipidemia) Surgical History History of loop electrical excision procedure (LEEP) H/O tubal ligation [place] teeth extracted Family History Other Cancer Coronary artery disease Heart attack Hyperlipidemia Hypertension Social History Smoking Status: Current every day smoker tobacco type: e-cigarettes alcohol intake: current alcohol intake frequency: holidays/special occasions only substance use type: denies use current occupational status: employed Travel in the last 8 weeks?: None Have you lived/traveled outside US in past 30 days?: No Contact w/someone who lives/traveled outside US past 30 days?: No Exposure to someone with infectious disease in past 14 days?: No Do you have a fever (greater than 100.4 F or 38 C)?: No Have you tested positive for COVID-19?: No Exposed to someone with COVID-19 in past 14 days?: No Do you have a sore throat?: No Do you have a cough?: No Do you have any weakness?: No Do you have any diarrhea?: No Are you experiencing any unusual bleeding?: No Do you have any muscle aches/pain?: No Do you have any abdominal pain?: No Are you experiencing loss of taste or smell?: No ROS Obtained: Yes Systems reviewed as appropriate & no additional complaints except as documented Physical Exam General General appearance: alert and in no apparent distress Head Head exam: atraumatic and normocephalic Eye Eye exam: Present PERRL and EOMI ENT ENT exam: Present mucous membranes moist and TM's normal bilaterally Neck Neck exam: Present normal inspection Chest Chest inspection: Present normal inspection and symmetric chest wall rise Respiratory Respiratory exam: Present normal lung sounds bilaterally; Absent respiratory distress or wheezes Cardiovascular Cardiovascular exam: Present regular rate and normal rhythm Abdominal Exam Abdominal exam: Present soft; Absent tenderness Extremities Exam Extremities exam: Present normal inspection and other (5 out of 5 strength bilateral upper and lower extremities) Neurological Exam Neurological exam: Present alert and CN II-XII intact; Absent motor sensory deficit Psychiatric Psychiatric exam: Present normal affect Skin Skin exam: Present warm and dry Medical Decision Making Medical Records Screening: Per USPSTF and CDC recommendations, given the prevalence of disease in our region, it is our hospital?s policy to screen for HIV and viral Hepatitis for all patients aged 18 and over and those with ongoing risk factors. Kb Inquiry Pt receiving controlled substance: No Vital Signs: 12/01/24 10:00 12/01/24 10:04 12/01/24 10:28 Temperature 98.2 F Temperature Source Oral Pulse Rate 82 78 Pulse Rate [Left] 80 Pulse Rate [Orthostatic Lying] Pulse Rate [Orthostatic Sitting] Pulse Rate [Orthostatic Standing] Respiratory Rate 19 17 Blood Pressure 158/100 H 119/86 Blood Pressure [Orthostatic Lying Right Arm] Blood Pressure [Orthostatic Sitting Right Arm] Blood Pressure [Orthostatic Standing Right Arm] Blood Pressure [Right Radial Artery] 158/100 H Blood Pressure Mean [Right Radial Artery] 119 Blood Pressure Source [Right Radial Artery] Automatic Cuff 02 Sat by Pulse Oximetry 100 100 100 Oxygen Delivery Method Room Air Room Air Room Air 12/01/24 10:30 12/01/24 10:31 12/01/24 10:34 Temperature Temperature Source Pulse Rate 79 67 Pulse Rate [Left] Pulse Rate [Orthostatic Lying] 70 Pulse Rate [Orthostatic Sitting] 68 Pulse Rate [Orthostatic Standing] 75 Respiratory Rate 22 16 Blood Pressure 134/85 134/89 Blood Pressure [Orthostatic Lying Right Arm] 119/86 Blood Pressure [Orthostatic Sitting Right Arm] 134/85 Blood Pressure [Orthostatic Standing Right Arm] 134/89 Blood Pressure [Right Radial Artery] Blood Pressure Mean [Right Radial Artery] Blood Pressure Source [Right Radial Artery] 02 Sat by Pulse Oximetry 99 99 Oxygen Delivery Method Room Air Room Air Lab Data Lab Results 12/01/24 10:09: WBC 10.8, RBC 4.24, Hgb 14.1, Hct 40.5, MCV 95.5, MCH 33.3 H, MCHC 34.8, RDW 13.1, Plt Count 418, MPV 10.3, Neut % (Auto) 78.9, Lymph % (Auto) 14.3, Morris % (Auto) 5.3, Eos % (Auto) 0.7, Baso % (Auto) 0.5, Neut # (Auto) 8.6 H, Lymph # (Auto) 1.6, Morris # (Auto) 0.6, Eos # (Auto) 0.1, Baso # (Auto) 0.1, Sodium 137, Potassium 4.7, Chloride 101, Carbon Dioxide 26, Anion Gap 14.7, BUN 17, Creatinine 0.70, Estimated Creat Clear 80, Estimated GFR 86, Est GFR ( Amer) 104, Glucose 98, Calcium 10.9 H, Magnesium 2.1, Total Bilirubin 0.9, AST 23, ALT 17, Alkaline Phosphatase 87, Total Protein 7.8, Albumin 4.6, Globulin 3.2, Albumin/Globulin Ratio 1.4 12/01/24 10:09 12/01/24 10:09 Orders (Tests/Meds): ED MEDICATIONS Generic Name Dose Route Start Last Admin Trade Name Freq PRN Reason Stop Dose Admin Sodium Chloride 10 ml 12/01/24 11:03 12/01/24 11:05 Sodium Chloride 0.9% 10ml Syr (Rad Only) IV 12/31/24 11:02 10 ml NEEDED PRN Administration Maintain IV Site Discontinued Medications Generic Name Dose Route Start Last Admin Trade Name Freq PRN Reason Stop Dose Admin Lactated Ringer's 1,000 mls @ 999 mls/hr 12/01/24 10:15 12/01/24 10:22 Lactated Ringer's 1000 Ml Bag IV 12/01/24 11:15 999 mls/hr .Q1H1M ONE Administration Iopamidol 75 ml 12/01/24 11:03 12/01/24 11:05 Iopamidol-370 (76%);100ml Bottle IV 12/01/24 11:04 75 ml ONCE ONE Administration Sodium Chloride 50 ml 12/01/24 11:03 12/01/24 11:05 0.9 % Sodium Chloride 50 Ml Vial IV 12/01/24 11:04 50 ml ONCE ONE Administration ORDERS Category Date Time Status CT angio head Stat Cat Scan 12/01/24 10:[address] angio neck Stat Cat Scan 12/01/24 10:[address] head/brain wo con Stat Cat Scan 12/01/24 10:15 Completed CXR --portable [XR chest portable] Stat Exams 12/01/24 10:15 Completed POCUS Point of Care (ER Only) Stat Exams 12/01/24 10:15 Completed CBC w/Auto Diff [Complete Blood Count Auto Diff] Stat Lab 12/01/24 10:09 Completed CMP [Comprehensive Metabolic Panel] Stat Lab 12/01/24 10:09 Completed MG [Magnesium] Stat Lab 12/01/24 10:09 Completed Rapid PCR Covid and Flu A/B Stat Lab 12/01/24 10:47 Ordered ECG Data Tracing #1: Independently inter by me rate is 69, rhythm is regular, axis is normal, no ST elevation in anatomical contiguous leads, QTc 414, no dagger Q waves in the lateral leads, no high degree AV block, no preexcitation, no evidence of type II Brugada's. Medical Decision Narrative: In summary patient is a 59-year-old female past medical history described above who presents emergency department for evaluation of post respiratory infection dizziness. Patient is hemodynamically stable nontoxic-appearing upon arrival, afebrile with a nonfocal neurologic exam. Differential diagnosis includes medication side effect, protracted symptomatology from illness, critical cervical artery stenosis, pericardial effusion, critical electrolyte abnormality, among others. Workup will be conducted in totality with hematologic labs [id number] ultrasound noncontrasted CT scan of the head CTA of the head neck EKG chest x-ray.. Initial inventions include crystalloid bolus. Initial workup reviewed by me, hematologic labs are nonactionable no significant leukocytosis no transfusable anemia no acute MICHAEL or critical electrolyte abnormality. Calcium is mildly elevated and nonactionable. Noncontrasted CT scan of the head informally visualized by me no acute large intracranial hemorrhage or mass effect. Formal read shows no acute pathology. Patient was on cardiac monitoring throughout her stay in the emergency department had no tacky dysrhythmias. Orthostatics unrevealing. Patient has no nystagmus and a nonfocal neurologic exam otherwise [id number] ultrasound shows grossly normal cardiac function without large pericardial effusion. CTA head neck nonactionable no critical stenosis. Given this patient is appropriate for outpatient management at this time will be referred to Dr. Vasquez's office for continued cardiac evaluation. Procedure: Procedure performed was cardiac ultrasound procedure performed by Martin Mccord. Using the phased array probe parasternal long axis and parasternal short axis views were identified. No pericardial effusion left intraocular ejection fraction grossly normal EPSS normal, no D sign on parasternal short. Images were saved to apartment archive and were technically adequate and did not necessitate further imaging patient tolerated the procedure well. Critical Care Critical Care Time Critical Care Time: No
--- NOTE | 2024-12-01 10:17 | PC.NURSE ---
Entered room to obtain a nasal swab, Patient refused
[2024-12-01] MEDS: LACTATED RINGERS 1000ML 1,000 ML 999 ML IV (10:22)
[2024-12-01 10:26] LABS: Magnesium 2.1 mg/dl (1.6-2.3)
--- NOTE | 2024-12-01 10:48 | PC.NURSE ---
Pt refused nasal swab.
--- NOTE | 2024-12-01 10:55 | PC.NURSE ---
Pt left room with radiology for CT
[2024-12-01 10:57] LABS: Basophils # 0.1 K/mm3 (0-0.2); Basophils % 0.5 % (0.1-2.0); Eosinophils # 0.1 Kmm3 (0.0-0.4); Eosinophils % 0.7 % (0.1-12.0); Hematocrit 40.5 % (37.0-47.0); Hemoglobin 14.1 g/dL (12.2-16.2); Immature Granulocytes # 0.03 10^3uL; Immature Granulocytes % 0.3 %; Lymphocytes # 1.6 K/mm3 (0.7-4.5); Lymphocytes % 14.3 % (10-50); Mean Corpuscular HGB Conc 34.8 g/dL (31.8-35.4); Mean Corpuscular Hemoglobin 33.3 pg (27.0-31.2); Mean Corpuscular Volume 95.5 fl (81-99); Mean Platelet Volume 10.3 fl (7.4-10.4); Monocytes # 0.6 K/mm3 (0.1-1.0); Monocytes % 5.3 % (1.7-9.3); Neutrophils # 8.6 K/mm3 (1.8-7.8); Neutrophils % 78.9 % (37.0-80.0); Nucleated Red Blood Cells # 0 10^3/uL; Nucleated Red Blood Cells % 0 %; Platelet Count 418 K/mm3 (142-424); Red Blood Count 4.24 M/mm3 (4.20-5.40); Red Cell Distribution Width 13.1 % (11.5-17.5); Red Cell Distribution Width-SD 45.9 fL; White Blood Count 10.8 K/mm3 (4.8-10.8)
[2024-12-01 11:02] LABS: Alanine Aminotransferase 17 U/L (12-78); Albumin Level 4.6 g/dl (3.5-5.0); Albumin/Globulin Ratio 1.4 (1.1-1.8); Alkaline Phosphatase 87 U/L (38-126); Anion Gap 14.7 mEq/L (5-15); Aspartate Amino Transferase 23 U/L (14-36); Bilirubin,Total 0.9 mg/dl (0.2-1.3); Blood Urea Nitrogen 17 mg/dl (7-17); Calcium 10.9 mg/dl (8.4-10.2); Carbon Dioxide 26 mmol/L (22.0-30.0); Chloride 101 mmol/L (98-107); Creatinine Clearance Estimated 80 mL/min (50-200); Estimated Glomerular Filt Rate 86 ml/min (>60); GFR (African American) 104 ML/MIN (>60); Globulin 3.2 g/dL (1.3-3.2); Glucose 98 mg/dl (74-100); Potassium 4.7 mmoL/L (3.5-5.1); Sodium 137 mmol/L (136-145); Total Protein,Serum 7.8 g/dl (6.3-8.2)
[2024-12-01] MEDS: SODIUM CHLORIDE 0.9% 10ML SYR (RAD ONLY) 10 ML IV (11:05)
[2024-12-01] MEDS: IOPAMIDOL-370 (76%);100ML BOTTLE 75 ML IV (11:05)
[2024-12-01] MEDS: 0.9 % SODIUM CHLORIDE 50 ML VIAL IV (11:05)
--- NOTE | 2024-12-01 11:09 | PC.NURSE ---
Pt returned from CT
== END 2024-12-01 12:23 | disposition home or self-care (01) ==
PROVIDERS: Emergency Provider Emergency Medicine; PCP Family Medicine
DX: R42 Dizziness and giddiness (principal); E78.5 Hyperlipidemia, unspecified; F17.210 Nicotine dependence, cigarettes, uncomplicated
CPT/HCPCS: 70450; 70496; 70498; 71045; 80053; 83735; 85025; 93005; 96360; 99285; J7120; Q9967

== ENCOUNTER 2024-12-04 15:24 | Outpatient (CLI) | payer OTHER, SELFPAY ==
--- OUTSIDE RECORDS SUMMARY | 2024-12-04 15:26 | XMS_ITS | Clinical Summary ---
Author Organization [employer] ([place], [place], [place], [place]) Address [address] [place] [address] Care Team Providers Care Meat Apprentice Name Role Phone Zain López PA-C Unavailable [phone] Dennis Contreras MD Primary Care Provider [phone] Freddie Mcdonald MD Unavailable Allergies Active Allergy Reactions Criticality Noted Date Comments Latex 09/24/2021 Medications clobetasoL (TEMOVATE) 0.05 % cream Apply topically 2 (two) times daily as needed Apply topically to affected area twice daily.. 60 g 11 3 Active neomycin-bacitra ysz-jqwcbtsfo-fl drocortisone (CORTISPORIN) 3.5-400-10,000 mg-unit/g-1% ophth ointmentIndicati ons:[place] eye disease of right eye Place 1 [...] Active Dupixent Pen 300 mg/2 mL pnij 01/06/202 5 Active Active Problems Problem Noted Date [...] Department Care Team Description 10/11/2024 Orders Only [facility] Orthopedics - [address] [id number] Freddie Mcdonald MD Traumatic rupture of supraspinatus tendon of left shoulder, initial encounter; Injury of left shoulder, initial encounter 09/28/2024 1:15 PM EDT Office Visit [facility] [address] [place] [address] Freddie Mcdonald MD Nontraumatic incomplete tear of left rotator cuff (Primary Dx) 09/14/2024 1:30 PM EDT Office 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 - [facility] [address] [facility] [address] [place] [address] Alejandrina Flores MD Women's annual routine gynecological examination (Primary Dx); Postmenopausal; Hormone replacement therapy (HRT) from Last 3 Months Family History Medical History Relation Name Comments Alcohol abuse Father Breast cancer Maternal Grandmother No Known Problem Mother Relation Name Status Comments Father Maternal Grandfather Maternal Grandmother Mother Alive Social History Tobacco Use Types Packs/Day Years Used Date Smoking Tobacco: Former Cigarettes 30 1 - 2009 Smokeless Tobacco: Never Tobacco Cessation:Counseling Given: Not Answered Comments:vapes Alcohol Use Standard Drinks/Week Comments Never 0 (1 standard drink = 0.6 oz pur e alcohol) Family and Community Support Answer Yifan e Recorded Help with Day to Day Activities Not on file 06/18/2023 Feeling Lonely or Isolated Not on file 06/18 Educational Attainment Answer Date Jelani rded Speak language other than Azerbaijani at home Not on file 06/18/2023 Want help with school or training Not on file 06/18/2023 Substance Use Answer Date Recorded Used [...] 09/16/2017 Pap Smear 04/28/2022 04/28/2019 COVID-19 VACCINE (2023-2 5 season) 2024 Influenza Vaccine (Season Ended) 2025 Tobacco Cessation Counseling and Screening (12+) 09/14/2025 09/14/2024 Breast Cancer Screening 06/08/2026 06/08/19, 12/02/2023, 10/28/2023, Additional history exists Procedures Procedure [...] recommended imaging studies/procedures. At our facility, a [place] marker is positioned over a visible skin [...] family history of breast cancer COMPARISON STUDY: [facility] November 2023 through 2017 FINDINGS: Craniocaudal and [...] Most Recently Relevant to Health Maintenance Insurance [facility] Care Teams Meat Apprentice Relationship Specialty Start Date End Date Dennis Contreras MD [address] [place] [address] PCP - General Family Medicine 12/02/23 Zain López PA-C [address] [place] [address] Orthopedic Surgery 07/27/23 Freddie Mcdonald MD [address] [place] [address] Sports Medicine 06/26/24
--- OUTSIDE RECORDS SUMMARY | 2024-12-04 15:26 | XMS_ITS | Referral Summary ---
Author Organization [employer] ([place], [place], [place], [place]) Address [address] [place] [address] Care Team Providers Care Senior Safety Support Manager Name Role Phone Zain López PA-C Unavailable [phone] Dennis Contreras MD Primary Care Provider [phone] Freddie Mcdonald MD Unavailable Encounters Date Type Department Care Team Description 10/11/2024 Orders Only [facility] Orthopedics - [address] [address] Freddie Mcdonald MD Traumatic rupture of supraspinatus tendon of left shoulder, initial encounter; Injury of left shoulder, initial encounter 09/28/2024 1:15 PM EDT Office Visit [facility] Orthopedics - [facility] [address] [place] [address] Freddie Mcdonald MD Nontraumatic incomplete tear of left rotator cuff (Primary Dx) 09/14/2024 1:30 PM EDT Office 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 60 g 11 3 Active neomycin-bacitra xuk-lxwwidaqv-ts drocortisone (CORTISPORIN) 3.5-400-10,000 mg-unit/g-1% ophth ointmentIndicati ons:[place] eye disease of right eye Place 1 [...] Smoking Tobacco: Former Cigarettes 2 30 1 - 2009 Smokeless Tobacco: Never [...] Date Jelani rded Speak language other than Peruvian at home Not on file 06/18/2023 Want [...] recommended imaging studies/procedures. At our facility, a [place] marker is positioned over a visible skin [...] family history of breast cancer COMPARISON STUDY: [facility] November 2023 through 2017 FINDINGS: Craniocaudal [...] Most Recently Relevant to Health Maintenance Insurance [facility] Care Teams Senior Safety Support Manager Relationship Specialty Start Date End Date Dennis Contreras MD [address] [place] [address] PCP - General Family Medicine 12/02/23 Zain López PA-C [address] [place] [address] Orthopedic Surgery 07/27/23 Freddie Mcdonald MD [address] [place] [address] Sports Medicine 06/26/24
--- OUTSIDE RECORDS SUMMARY | 2024-12-04 15:26 | XMS_ITS | Encounter Summary ---
Author Organization [employer] ([place], [place], [place], [place]) Address [address] [place] [address] Care Team Providers Care Desk Clerks Supervisor Name Role Phone Alejandrina Flores MD Primary Care Provider + Adelaide Clements MD Primary Care Provider [phone] Zain López PA-C Unavailable [phone] Dennis Contreras MD Primary Care Provider [phone] Freddie Mcdonald MD Unavailable Reason for Referral * Mammography (Routine) - Closed Specialty Diagnoses / Procedures Referred By Eladia t Referred To Contact Diagnoses Encounter for screening mammogram for malignant neoplasm of breast Procedures MM digital mammo screen with mariangel bilateral Alejandrina Flores MD [address] [facility] [address] [place] [address] Phone: tel: fax: Referral ID Status Reason Start Date Expiration Date Visits Re quested Visits Authorized [id number] Closed 06/29/2022 12/26/2022 1 1 Encounter Details Date Type Department Care Team (Late st Contact Info) Description 06/29/2022 Outside Orders [facility] Central Scheduling [address] [place] [address] Alejandrina Flores MD [address] [facility] [address] [place], [place] [id number] Encounter for screening mammogram for malignant neoplasm of breast (Primary Dx) Social History Tobacco Use Types Packs/Day Years Used Date Smoking Tobacco: Former Cigarettes 2 30 1 - 2009 Smokeless Tobacco: Never Alcohol Use Standard [...] the next mammogram. At our facility, a jackson marker is positioned over a visible skin lesion and a linear marker is used to indicate a scar. A triangular marker is placed on a self reported palpable finding. Narrative 07/17/2022 5:50 PM EST PROCEDURE: Digital screening mammogram with Digital Breast Tomosynthesis (DBT). REASON FOR EXAM: Routine screening. FAMILY HISTORY: Intermediate Risk family history of breast cancer. COMPARISON STUDY: 2017 from [facility] FINDINGS: Craniocaudal and mediolateral oblique images [...] breast documented in this encounter Care Teams Desk Clerks Supervisor Relationship Specialty Start Date End Date Alejandrina Flores MD [address] [facility] [address] [place] [address] PCP - General Obstetrics and Gynecology 07/17/2201/05 Adelaide Clements MD [address] [facility] [address] [place] [address] PCP - General Family Medicine 01/20/23 12/01/23 Dennis Contreras MD [address] [place] [address] PCP - General Family Medicine 12/02/23 Zain López PA-C [address] [place] [address] Orthopedic Surgery 07/27/23 Freddie Mcdonald MD [address] [place] [address] Sports Medicine 06/26/24 documented as of this encounter
--- OUTSIDE RECORDS SUMMARY | 2024-12-04 15:26 | XMS_ITS | Encounter Summary ---
Author Organization [employer] ([place], [place], [place], [place]) Address [address] [place] [address] Care Team Providers Care Gripper Attacher Name Role Phone Adelaide Clements MD Primary Care Provider [phone] Zain López PA-C Unavailable [phone] Dennis Contreras MD Primary Care Provider [phone] Freddie Mcdonald MD Unavailable Reason for Visit * Reason Comments Medication Refill Encounter Details Date Type Department Care Team (Late st Contact Info) Description 11/19/2023 Refill [facility] Primary Care [address] [place] [address] Nohelia Esquivel APRN [address] [facility] [address] [place] [address] Social History Tobacco Use Types [...] Date Jelani rded Speak language other than [place]oth[place] at home Not on file 06/18/2023 Want [...] on filedocumented in this encounter Care Teams Gripper Attacher Relationship Specialty Start Date End Date Adelaide Clements MD PCP - General Family Medicine 01/20/23 12/01/23 Dennis Contreras MD [address] [place], [place] [id number] PCP - General Family Medicine 12/02/23 Zain López PA-C [address] [place] [address] Orthopedic Surgery 07/27/23 Frdedie Mcdonald MD [address] [place] [address] Sports Medicine 06/26/24 documented as of this encounter
--- OUTSIDE RECORDS SUMMARY | 2024-12-04 15:26 | XMS_ITS | Encounter Summary ---
Author Organization [employer] ([place], [place], [place], [place]) Address [address] [place] [address] Care Team Providers Care Fresh Meat Grader Name Role Phone Zain López PA-C Unavailable [phone] Dennis Contreras MD Primary Care Provider + Freddie Mcdonald MD Unavailable Reason for Visit * Reason Comments Medication Refill Encounter Details Date Type Department Care Team (Late st Contact Info) Description 02/16/2024 Refill [facility] Primary Care [address] [place] [address] Nohelia Esquivel APRN [address] [place] [address] Intractable migraine with aura without [...] Date Jelani rded Speak language other than Indonesian at home Not on file 06/18/2023 Want [...] migrainosus documented in this encounter Care Teams Fresh Meat Grader Relationship Specialty Start Date End Date Dennis Contreras MD [address] [place] [address] PCP - General Family Medicine 12/02/23 Zain López PA-C [address] [place] [address] Orthopedic Surgery 07/27/23 Freddie Mcdonald MD [address] [place] [address] Sports Medicine 06/26/24 documented as of this encounter
--- OUTSIDE RECORDS SUMMARY | 2024-12-04 15:27 | XMS_ITS | Encounter Summary ---
Author Organization [email or web address] ([place], [place], [place], [place]) Address [address] [place] [address] Care Team Providers Care Director Of Medical Staff Services Name Role Phone Adelaide Clements MD Primary Care Provider [phone] Zain López PA-C Unavailable [phone] Dennis Contreras MD Primary Care Provider + Freddie Mcdonald MD Unavailable Reason for Visit * Reason Onset Date Comments Medication Refill 11/18/2023 Encounter Details Date Type Department Care Team (Late st Contact Info) Description 11/18/2023 Refill [facility] Primary Care [address] [place] [address] Nohelia Esquivel APRN [address] [facility] [address] [place] [address] Social History Tobacco Use Types [...] Date Jelani rded Speak language other than Urdu at home Not on file 06/18/2023 Want [...] on filedocumented in this encounter Care Teams Director Of Medical Staff Services Relationship Specialty Start Date End Date Adelaide Clements MD PCP - General Family Medicine 01/20/23 12/01/23 Dennis Contreras MD [address] [place] [address] PCP - General Family Medicine 12/02/23 Zain López PA-C [address] [place] [address] Orthopedic Surgery 07/27/23 Freddie Mcdonald MD [address] [place] [address] Sports Medicine 06/26/24 documented as of this encounter
--- OUTSIDE RECORDS SUMMARY | 2024-12-04 15:27 | XMS_ITS | Encounter Summary ---
Author Organization [employer] ([place], [place], [place], [place]) Address [address] [place] [address] Care Team Providers Care Pug Mill Operator Name Role Phone Adelaide Clements MD Primary Care Provider [phone] Zain López PA-C Unavailable [phone] Dennis Contreras MD Primary Care Provider + 9 Freddie Mcdonald MD Unavailable Reason for Visit * Reason Comments Medication Refill Encounter Details Date Type Department Care Team (Late st Contact Info) Description 02/21/2023 Refill [facility] Primary Care - [address] [address] Hasmukh Workman MD [address] [facility] [address] [place] [address] Social History Tobacco Use Types Packs/Day Years [...] on filedocumented in this encounter Care Teams Pug Mill Operator Relationship Specialty Start Date End Date Adelaide Clements MD PCP - General Family Medicine 01/20/23 12/01/23 Dennis Contreras MD [address] [place] [address] PCP - General Family Medicine 12/02/23 Zain López PA-C [address] [place] [address] Orthopedic Surgery 07/27/23 Freddie Mcdonald MD [address] [place] [address] Sports Medicine 06/26/24 documented as of this encounter
--- OUTSIDE RECORDS SUMMARY | 2024-12-04 15:27 | XMS_ITS | Encounter Summary ---
Author Organization [employer] ([place], [place], [place], [place]) Address [address] [place] [address] Care Team Providers Care Vp Informatics Name Role Phone Adelaide Clements MD Primary Care Provider [phone] Zain López PA-C Unavailable [phone] Dennis Contreras MD Primary Care Provider + 5 Fredide Mcdonald MD Unavailable Reason for Visit * Reason Onset Date Comments Medication Refill 05/24/2023 Encounter Details Date Type Department Care Team (Late st Contact Info) Description 05/24/2023 Refill [facility] Primary Care [address] [address] Hasmukh Workman MD [address] [place] [address] Social History Tobacco Use Types Packs/Day Years [...] on filedocumented in this encounter Care Teams Vp Informatics Relationship Specialty Start Date End Date Adelaide Clements MD PCP - General Family Medicine 01/20/23 12/01/23 Dennis Contreras MD [address] [place] [address] PCP - General Family Medicine 12/02/23 Zain López PA-C [address] [place] [address] Orthopedic Surgery 07/27/23 Freddie Mcdonald MD [address] [place] [address] Sports Medicine 06/26/24 documented as of this encounter
--- OUTSIDE RECORDS SUMMARY | 2024-12-04 15:27 | XMS_ITS | Encounter Summary ---
Author Organization [employer] ([place], [place], [place], [place]) Address [address] [place] [address] Care Team Providers Care Mat Cleaning Machine Operator Name Role Phone Zain López PA-C Unavailable [phone] Dennis Contreras MD Primary Care Provider +1 Freddie Mcdonald MD Unavailable Encounter Details Date Type Department Care Team (Late st Contact Info) Description 10/11/2024 Orders Only [facility] Orthopedics - [address] [address] Freddie Mcdonald MD [address] [place] [address] Traumatic rupture of supraspinatus tendon [...] Date Jelani rded Speak language other than Grenadian at home Not on file 06/18/2023 Want [...] encounter documented in this encounter Care Teams Mat Cleaning Machine Operator Relationship Specialty Start Date End Date Dennis Contreras MD [address] [place] [address] PCP - General Family Medicine 12/02/23 Zain López PA-C [address] [place] [address] Orthopedic Surgery 07/27/23 Freddie Mcdonald MD [address] [place] [address] Sports Medicine 06/26/24 documented as of this encounter
--- OUTSIDE RECORDS SUMMARY | 2024-12-04 15:27 | XMS_ITS | Encounter Summary ---
Author Organization [employer] ([place], [place], [place], [place]) Address [address] [place] [address] Care Team Providers Care Die Sinker Name Role Phone Adelaide Clements MD Primary Care Provider [phone] Zain López PA-C Unavailable [phone] Dennis Contreras MD Primary Care Provider + 2 Freddie Mcdonald MD Unavailable Reason for Referral * Mammography (Routine) - Closed Specialty Diagnoses / Procedures Referred By Eladia gagnon Referred To Contact Diagnoses Visit for screening mammogram Procedures MM digital mammo screen with mariangel bilateral Nohelia Esquivel APRN [address] [place] [address] Phone: tel: fax: Referral ID Status Reason Start Date Expiration Date Visits Re quested Visits Authorized [id number] Closed 08/02/2023 01/29/2024 1 1 Encounter Details Date Type Department Care Team (Late st Contact Info) Description 08/02/2023 Outside Orders [facility] Central Scheduling 1 [place] [address] Nohelia Esquivel APRN [address] [place] [address] Visit for screening mammogram (Primary [...] Date Jelani rded Speak language other than Bengali at home Not on file 06/18/2023 Want [...] the next mammogram. At our facility, a united [place] marker is positioned over a visible skin [...] the right breast on MLO view. Nohelia Mcelroydo [facility] MAMMOGRAPHY ORDERABLES Final Result documented in this encounter Visit Diagnoses Diagnosis Visit for screening mammogram- Primary Visit for screening mammogram documented in this encounter Care Teams Die Sinker Relationship Specialty Start Date End Date Adelaide Clements MD PCP - General Family Medicine 01/20/23 12/01/23 Dennis Contreras MD [address] [place] [address] PCP - General Family Medicine 12/02/23 Zain López PA-C [address] [place] [address] Orthopedic Surgery 07/27/23 Freddie Mcdonald MD [address] [place] [address] Sports Medicine 06/26/24 documented as of this encounter
== END 2024-12-04 23:59 | disposition home or self-care (01) ==
LOC: RT 15:25
PROVIDERS: PCP Family Medicine; Visit Provider Nurse Practitioner Family
DX: I49.1 Atrial premature depolarization (principal); I49.3 Ventricular premature depolarization; I47.20 Ventricular tachycardia, unspecified; R55 Syncope and collapse
CPT/HCPCS: 93270

== ENCOUNTER 2024-12-13 12:37 | Outpatient (CLI) | payer OTHER, SELFPAY ==
--- OUTSIDE RECORDS SUMMARY | 2024-12-13 12:39 | XMS_ITS | Clinical Summary ---
Author Organization [employer] ([place], [place], [place], [place]) Address [address] [place] [address] Care Team Providers Care Pocket Setter Name Role Phone Zain López PA-C Unavailable [phone] Dennis Contreras MD Primary Care Provider [phone] Freddie Mcdonald MD Unavailable Allergies Active Allergy Reactions Criticality Noted Date Comments Latex 09/24/2021 Medications clobetasoL (TEMOVATE) 0.05 % cream Apply topically 2 (two) times daily as needed Apply topically to affected area twice daily.. 60 g 11 3 Active neomycin-bacitra grg-kpivsnblf-kh drocortisone (CORTISPORIN) 3.5-400-10,000 mg-unit/g-1% ophth ointmentIndicati ons:[place] eye disease of right eye Place 1 [...] Department Care Team Description 10/11/2024 Orders Only [facility] Orthopedics - [address] [id number] Freddie Mcdonald MD Traumatic rupture of supraspinatus tendon of left shoulder, initial encounter; Injury of left shoulder, initial encounter 09/28/2024 1:15 PM EDT Office Visit [facility] Orthopedics [facility] [address] [place] [address] Freddie Mcdonald MD Nontraumatic incomplete tear of left rotator cuff (Primary Dx) 09/14/2024 1:30 PM EDT Office Visit [facility] UAT TESTER - [facility] [address] [facility] [address] [place] [address] Alejandrina Flores MD Women's annual [...] Date Jelani rded Speak language other than Comoran at home Not on file 06/18/2023 Want [...] VACCINE (2023-2 5 season) 2024 Influenza Vaccine (#1) 2025 Tobacco Cessation Counseling and Screening (12+) [...] recommended imaging studies/procedures. At our facility, a [place] marker is positioned over a visible skin [...] history of breast cancer COMPARISON STUDY: [facility] November 2023 through 2017 FINDINGS: Craniocaudal and [...] Most Recently Relevant to Health Maintenance Insurance [facility] Care Teams Pocket Setter Relationship Specialty Start Date End Date Dennis Contreras MD [address] [place] [address] PCP - General Family Medicine 12/02/23 Zain López PA-C [address] [place] [address] Orthopedic Surgery 07/27/23 Freddie Mcdonald MD [address] [place] [address] Sports Medicine 06/26/24
--- OUTSIDE RECORDS SUMMARY | 2024-12-13 12:39 | XMS_ITS | Encounter Summary ---
Author Organization [employer] ([place], [place], [place], [place]) Address [address] [place] [address] Care Team Providers Care Box Machine Operator Name Role Phone Adelaide Clements MD Primary Care Provider [phone] Zain López PA-C Unavailable [phone] Dennis Contreras MD Primary Care Provider + [phone] Freddie Mcdonald MD Unavailable Reason for Visit * Reason Comments Medication Refill Encounter Details Date Type Department Care Team (Late st Contact Info) Description 11/19/2023 Refill [facility] Primary Care [address] [place] [address] Nohelia Esquivel APRN [address] [facility] [address] [place] [address] Social History Tobacco Use Types [...] Date Jelani rded Speak language other than Estonian at home Not on file 06/18/2023 Want [...] on filedocumented in this encounter Care Teams Box Machine Operator Relationship Specialty Start Date End Date Adelaide Clements MD PCP - General Family Medicine 01/20/23 12/01/23 Dennis Contreras MD [address] [place], [place] [id number] PCP - General Family Medicine 12/02/23 Zain López PA-C [address] [place] [address] Orthopedic Surgery 07/27/23 Freddie Mcdonald MD [address] [place] [address] Sports Medicine 06/26/24 documented as of this encounter
--- OUTSIDE RECORDS SUMMARY | 2024-12-13 12:39 | XMS_ITS | Referral Summary ---
Author Organization [employer] ([place], [place], [place], [place]) Address [address] [place] [address] Care Team Providers Care Type Caster Name Role Phone Zani López PA-C Unavailable [phone] Dennis Contreras MD Primary Care Provider [phone] Freddie Mcdonald MD Unavailable Encounters Date Type Department Care Team Description 10/11/2024 Orders Only [facility] Orthopedics - [address] [address] Freddie Mcdonald MD Traumatic rupture of supraspinatus tendon of left shoulder, initial encounter; Injury of left shoulder, initial encounter 09/28/2024 1:15 PM EDT Office Visit [facility] Orthopedics - [facility] [address] [place] [address] Freddie Mcdonald MD Nontraumatic incomplete tear of left rotator cuff (Primary Dx) 09/14/2024 1:30 PM EDT Office Visit [facility] FIELD HORTICULTURAL SPECIALTY GROWER - [facility] [address] [facility] [address] [place] [address] Alejandrina Flores MD Women's annual routine gynecological examination (Primary Dx); Postmenopausal; Hormone replacement therapy (HRT) from Last 3 Months Allergies Active Allergy Reactions Criticality Noted Date Comments Latex 09/24/2021 Medications clobetasoL (TEMOVATE) 0.05 % cream Apply topically 2 (two) times daily as needed Apply topically to affected area twice daily.. 60 g 11 3 Active neomycin-bacitra xsf-hhbiwfmkt-yh drocortisone (CORTISPORIN) 3.5-400-10,000 mg-unit/g-1% ophth ointmentIndicati ons:[place] eye disease of right eye Place 1 [...] Date Jelani rded Speak language other than Palauan at home Not on file 06/18/2023 Want [...] gynecological examination MM DIGITAL MAMMO DIAGNOSTIC WITH ALIAS RIGHT Routine 06/08/2024 1:51 PM EST Abnormal [...] recommended imaging studies/procedures. At our facility, a [place] tribe marker is positioned over a visible skin [...] family history of breast cancer COMPARISON STUDY: [facility] November 2023 through 2017 FINDINGS: Craniocaudal [...] Most Recently Relevant to Health Maintenance Insurance [facility] Care Teams Type Caster Relationship Specialty Start Date End Date Dennis Contreras MD [address] [place] [address] PCP - General Family Medicine 12/02/23 Zain López PA-C [address] [place] [address] Orthopedic Surgery 07/27/23 Freddie Mcdonald MD [address] [place] [address] Sports Medicine 06/26/24
--- OUTSIDE RECORDS SUMMARY | 2024-12-13 12:39 | XMS_ITS | Encounter Summary ---
Author Organization [employer] ([place], [place], [place], [place]) Address [address] [place] [address] Care Team Providers Care Civil Engineering Project Manager Name Role Phone Alejandrina Flores MD Primary Care Provider + Adelaide Clements MD Primary Care Provider [phone] Zain López PA-C Unavailable [phone] Dennis Contreras MD Primary Care Provider [phone] Freddie Mcdonald MD Unavailable Reason for Referral * Mammography (Routine) - Closed Specialty Diagnoses / Procedures Referred By Eladia t Referred To Contact Diagnoses Encounter for screening mammogram for malignant neoplasm of breast Procedures MM digital mammo screen with mariangel bilateral Alejandrina Flores MD [address] [facility] [address] [place] [address] Phone: tel: fax: Referral ID Status Reason Start Date Expiration Date Visits Re quested Visits Authorized [id number] Closed 06/29/2022 12/26/2022 1 1 Encounter Details Date Type Department Care Team (Late st Contact Info) Description 06/29/[address] [facility] Central Scheduling [address] [place] [address] Alejandrina Flores MD [address] [facility] [address] [place] [address] Encounter for screening mammogram for malignant neoplasm [...] the next mammogram. At our facility, a [place] marker is positioned over a visible skin [...] breast documented in this encounter Care Teams Civil Engineering Project Manager Relationship Specialty Start Date End Date Alejandrina Flores MD [address] [facility] [address] [place] [address] PCP - General Obstetrics and Gynecology 07/17/2201/05 Adelaide Clements MD [address] [facility] [address] [place] [address] PCP - General Family Medicine 01/20/23 12/01/23 Dennis Contreras MD [address] [place] [address] PCP - General Family Medicine 12/02/23 Zain López PA-C [address] [place] [address] Orthopedic Surgery 07/27/23 Freddie Mcdonald MD [address] [place] [address] Sports Medicine 06/26/24 documented as of this encounter
--- OUTSIDE RECORDS SUMMARY | 2024-12-13 12:39 | XMS_ITS | Encounter Summary ---
Author Organization [employer] ([place], [place], [place], [place]) Address [address] [place] [address] Care Team Providers Care Security Installation Technician Name Role Phone Adelaide Clements MD Primary Care Provider [phone] Zain López PA-C Unavailable [phone] Dennis Contreras MD Primary Care Provider + Freddie Mcdonald MD Unavailable Reason for Visit * Reason Onset Date Comments Medication Refill 11/18/2023 Encounter Details Date Type Department Care Team (Late st Contact Info) Description 11/18/2023 Refill [facility] Primary Care [address] [place] [address] Nohelia Esquivel APRN [address] [facility] [address] [place] [address] Social History Tobacco Use Types Packs/Day Years Used Date Smoking Tobacco: Former Cigarettes 2 30 1 2009 Smokeless Tobacco: Never Comments:vapes Alcohol Use Standard Drinks/Week Comments Never 0 (1 standard drink = 0.6 oz pur e alcohol) Family and Community Support Answer Yifan e Recorded Help with Day to Day Activities Not on file 06/18/2023 Feeling Lonely or Isolated Not on file 06/18 Educational Attainment Answer Date Jelani rded Speak language other than Moldovan at home Not on file 06/18/2023 Want [...] on filedocumented in this encounter Care Teams Security Installation Technician Relationship Specialty Start Date End Date Adelaide Clements MD PCP - General Family Medicine 01/20/23 12/01/23 Dennis Contreras MD [address] [place] [address] PCP - General Family Medicine 12/02/23 Zain López PA-C [address] [place] [address] Orthopedic Surgery 07/27/23 Freddie Mcdonald MD [address] [place] [address] Sports Medicine 06/26/24 documented as of this encounter
--- OUTSIDE RECORDS SUMMARY | 2024-12-13 12:39 | XMS_ITS | Encounter Summary ---
Author Organization [employer] ([place], [place], [place], [place]) Address [address] [place] [address] Care Team Providers Care No Bake Molder Name Role Phone Adelaide Clements MD Primary Care Provider [phone] Zain López PA-C Unavailable [phone] Dennis Contreras MD Primary Care Provider + 2 Freddie Mcdonald MD Unavailable Reason for Referral * Mammography (Routine) - Closed Specialty Diagnoses / Procedures Referred By Eladia gagnon Referred To Contact Diagnoses Visit for screening mammogram Procedures MM digital mammo screen with mariangel bilateral Nohelia Esquivel APRN [address] [place] [address] Phone: tel: fax: Referral ID Status Reason Start Date Expiration Date Visits Re quested Visits Authorized [id number] Closed 08/02/2023 01/29/2024 1 1 Encounter Details Date Type Department Care Team (Late st Contact Info) Description 08/02/2023 Outside Orders [facility] Central Scheduling [address] [place] [address] Nohelia Esquivel APRN [address] [place] [address] Visit for screening mammogram (Primary [...] Date Jelani rded Speak language other than Kosovan at home Not on file 06/18/2023 Want [...] the next mammogram. At our facility, a [place] marker is positioned over a visible skin [...] mammogram documented in this encounter Care Teams No Bake Molder Relationship Specialty Start Date End Date Adelaide Clements MD PCP - General Family Medicine 01/20/23 12/01/23 Dennis Contreras MD [address] [place] [address] PCP - General Family Medicine 12/02/23 Zain López PA-C [address] [place] [address] Orthopedic Surgery 07/27/23 Freddie Mcdonald MD [address] [place] [address] Sports Medicine 06/26/24 documented as of this encounter
--- OUTSIDE RECORDS SUMMARY | 2024-12-13 12:39 | XMS_ITS | Encounter Summary ---
Author Organization [employer] ([place], [place], [place], [place]) Address [address] [place] [address] Care Team Providers Care Training Systems Officer Name Role Phone Adelaide Clements MD Primary Care Provider [phone] Zain López PA-C Unavailable [phone] Dennis Contreras MD Primary Care Provider + 2 Freddie Mcdonald MD Unavailable Reason for Visit * Reason Onset Date Comments Medication Refill 05/24/2023 Encounter Details Date Type Department Care Team (Late st Contact Info) Description 05/24/2023 Refill [facility] Primary Care [address] [address] Hasmukh Workman MD [address] [place] [address] Social History Tobacco Use Types Packs/Day Years [...] on filedocumented in this encounter Care Teams Training Systems Officer Relationship Specialty Start Date End Date Adelaide Clements MD PCP - General Family Medicine 01/20/23 12/01/23 Dennis Contreras MD [address] [place] [address] PCP - General Family Medicine 12/02/23 Zain López PA-C [address] [place] [address] Orthopedic Surgery 07/27/23 Freddie Mcdonald MD [address] [place] [address] Sports Medicine 06/26/24 documented as of this encounter
--- OUTSIDE RECORDS SUMMARY | 2024-12-13 12:39 | XMS_ITS | Encounter Summary ---
Author Organization [employer] ([place], [place], [place], [place]) Address [address] [place] [address] Care Team Providers Care Acrobatic Rigger Name Role Phone Zain López PA-C Unavailable [phone] Dennis Contreras MD Primary Care Provider + Freddie Mcdonald MD Unavailable Reason for Visit * Reason Comments Medication Refill Encounter Details Date Type Department Care Team (Late st Contact Info) Description 02/16/2024 Refill [facility] Primary Care [address] [place] [address] Nohleia Esquivel APRN [address] [place] [address] Intractable migraine with aura without status migrainosus Social History Tobacco Use Types Packs/Day Years Used Date Smoking Tobacco: Former Cigarettes 2 2009 Smokeless Tobacco: Never Comments:vapes Alcohol Use Standard Drinks/Week Comments Never 0 (1 standard drink = 0.6 oz pur e alcohol) Family and Community Support Answer Yifan e Recorded Help with Day to Day Activities Not on file 06/18/2023 Feeling Lonely or Isolated Not on file 06/18 Educational Attainment Answer Date Jelani rded Speak language other than Sri Lankan at home Not on file 06/18/2023 Want [...] migrainosus documented in this encounter Care Teams Acrobatic Rigger Relationship Specialty Start Date End Date Dennis Contreras MD [address] [place] [address] PCP - General Family Medicine 12/02/23 Zain López PA-C [address] [place] [address] Orthopedic Surgery 07/27/23 Freddie Mdconald MD [address] [place] [address] Sports Medicine 06/26/24 documented as of this encounter
--- OUTSIDE RECORDS SUMMARY | 2024-12-13 12:39 | XMS_ITS | Encounter Summary ---
Author Organization [employer] ([place], [place], [place], [place]) Address [address] [place] [address] Care Team Providers Care Crm Architect Name Role Phone Adelaide Clements MD Primary Care Provider [phone] Zain López PA-C Unavailable [phone] Dennis Contreras MD Primary Care Provider + 1 Freddie Mcdonald MD Unavailable Reason for Visit * Reason Comments Medication Refill Encounter Details Date Type Department Care Team (Late st Contact Info) Description 02/21/2023 Refill [facility] Primary Care - [address] [address] Hasmukh Workman MD [address] [facility] [address] [place] [address] Social History Tobacco Use Types Packs/Day Years [...] on filedocumented in this encounter Care Teams Crm Architect Relationship Specialty Start Date End Date Adelaide Clements MD PCP - General Family Medicine 01/20/23 12/01/23 Dennis Contreras MD [address] [place] [address] PCP - General Family Medicine 12/02/23 Zain López PA-C [address] [place] [address] Orthopedic Surgery 07/27/23 Freddie Mcdonald MD [address] [place] [address] Sports Medicine 06/26/24 documented as of this encounter
--- NOTE | 2024-12-13 13:00 | CA_ITS ---
APPROVED REPORT EXAM: Comprehensive 2D, Doppler, and color-flow Echocardiogram Telesales Supervisor: Bettina Shah CRT Ht: 5 ft 4 in Wt: 127lbs BSA: 1.61 BP: 165/97 mmHg Indications: jugular venous distention 2D Dimensions LA Volume 36.00 mL LA Volume Index 21.80 mL/m2 (M/F) 16-34 M-Mode Dimensions RVDd 1.87 cm (0.9-2.6) LA Diam 2.74 cm (1.9-4.0) LVDd 4.47 cm (3.5-5.7) LVDs 2.42 cm (3.5-5.7) IVSd 1.29 cm (0.6-1.1) PWd 0.66 cm (0.6-1.1) EF (Teich) 77.40% FS 45.90% EDV (Teich) 91.00 mL TAPSE 2.09 (<1.7) ESV (Teich) 20.60 mL LV Diastology E Decel Time 227 (160-240 msec) E/A Ratio 1.13 MED A' 10.50 cm/s LAT A' 10.00 cm/s Aortic Valve AI PHT 744.00 ms AO Peak GR. 4.90 mmHg Mitral Valve MV A Velocity 84.0 (40-130 cm/s) E/A Ratio 1.13 Pulmonary Valve PV Peak Velocity 120.0 (50-150 cm/s) Tricuspid Valve TR P. Velocity 230.00 cm/s RAP Estimate 10.00 mmHg RVSP 31.20 mmHg Left Ventricle The left ventricle is normal size. The left ventricular systolic function is normal. The left ventricular ejection fraction is within the normal range. There is normal left ventricular wall thickness. There is normal LV segmental wall motion. The left ventricular diastolic function is normal. LVEF is 55%. Right Ventricle The right ventricle is normal size. The right ventricular systolic function is normal. Atria Left atrium is mildly dilated. Right atrium is mildly dilated. There is no Doppler evidence of interatrial shunt. Aortic Valve The aortic valve opens well. There is no aortic valvular stenosis. No aortic regurgitation is present. Mitral Valve The mitral valve is normal in structure. No evidence of mitral valve stenosis. Mild mitral regurgitation. Tricuspid Valve Tricuspid valve is grossly normal in structure and function. Mild tricuspid regurgitation. RVSP is 20-25 mmHg. Pulmonic Valve The pulmonary valve is normal in structure. Trace pulmonic regurgitation. Great Vessels The aortic root is normal in size. IVC is normal in size and collapses >50% with inspiration. Pericardium There is no pericardial effusion. Other Information Study Quality: Adequate Conclusion Normal biventricular systolic function. Mild biatrial dilation. Mild MR, mild TR. No evidence of pericardial effusion. Electronically signed by : Olesya Reyes MD 12/18/2024 23:56:44
== END 2024-12-13 23:59 | disposition home or self-care (01) ==
LOC: RT 12:37
PROVIDERS: PCP Family Medicine; Visit Provider Family Medicine
DX: I08.1 Rheumatic disorders of both mitral and tricuspid valves (principal); R09.89 Other specified symptoms and signs involving the circulatory and respiratory systems
CPT/HCPCS: 93306

== ENCOUNTER 2024-12-19 11:41 | Outpatient (CLI) | payer OTHER, SELFPAY ==
--- NOTE | 2024-12-19 | CA_ITS ---
APPROVED REPORT Exam: Pharmacologic Technologist: Loni Deras Ht: 5 ft 4 in Wt: 127 lbs BSA: 1.61 m2 HR: 58 bpm BP: 139/83 mmHg Stress Test Details Test: Lexiscan HR Resting HR: 58 bpm Max Heart Rate (APMHR): 163.701862 bpm Max HR Achieved: 102 bpm Target HR (85% APMHR): 138.059681 bpm % of APMHR: 62.58 Recovery HR: 86 bpm BP Resting BP: 139.0/83.0 mmHg Max BP: 165.0/84.0 mmHg Recovery BP: 119.0/81.0 mmHg ECG Resting ECG: Sinus bradycardia Stress ECG Conclusion Symptoms: Chest pressure, dizziness Arrhythmias/Ectopy: PAC ST-T Changes: Less than [address] depression Conclusion: EKG unremarkable due to Lexiscan infusion. Electronically signed by : Olesya Reyes MD 12/20/2024 11:56:06
--- OUTSIDE RECORDS SUMMARY | 2024-12-19 11:44 | XMS_ITS | Encounter Summary ---
Author Organization [employer] ([place], [place], [place], [place]) Address [address] [place] [address] Care Team Providers Care Music Pastor Name Role Phone Adelaide Clements MD Primary Care Provider [phone] Zain López PA-C Unavailable [phone] Dennis Contreras MD Primary Care Provider + [phone] Freddie Mcdonald MD Unavailable Reason for Visit * Reason Comments Medication Refill Encounter Details Date Type Department Care Team (Late st Contact Info) Description 02/21/2023 Refill [facility] Primary Care - [address] [address] Hasmukh Workman MD [address] [facility] [address] [place] [address] Social History Tobacco Use Types Packs/Day Years [...] on filedocumented in this encounter Care Teams Music Pastor Relationship Specialty Start Date End Date Adelaide Clements MD PCP - General Family Medicine 01/20/23 12/01/23 Dennis Contreras MD [address] [place] [address] PCP - General Family Medicine 12/02/23 Zain López PA-C [address] [place] [address] Orthopedic Surgery 07/27/23 Freddie Mcdonald MD [address] [place] [address] Sports Medicine 06/26/24 documented as of this encounter
--- OUTSIDE RECORDS SUMMARY | 2024-12-19 11:44 | XMS_ITS | Encounter Summary ---
Author Organization [employer] ([place], [place], [place], [place]) Address [address] [place] [address] Care Team Providers Care Explosive Ordnance Specialist Name Role Phone Zain López PA-C Unavailable [phone] Dennis Contreras MD Primary Care Provider + Freddie Mcdonald MD Unavailable Reason for Visit * Reason Comments Medication Refill Encounter Details Date Type Department Care Team (Late st Contact Info) Description 02/16/2024 Refill [facility] Primary Care [address] [place] [address] Nohelia Esquivel APRN [address] [place] [address] Intractable migraine with aura without [...] Date Jelani rded Speak language other than Northern Irish at home Not on file 06/18/2023 Want [...] migrainosus documented in this encounter Care Teams Explosive Ordnance Specialist Relationship Specialty Start Date End Date Dennis Contreras MD [address] [place] [address] PCP - General Family Medicine 12/02/23 Zain López PA-C [address] [place] [address] Orthopedic Surgery 07/27/23 Freddie Mcdonald MD [address] [place] [address] Sports Medicine 06/26/24 documented as of this encounter
--- OUTSIDE RECORDS SUMMARY | 2024-12-19 11:44 | XMS_ITS | Encounter Summary ---
Author Organization [employer] ([place], [place], [place], [place]) Address [address] [place] [address] Care Team Providers Care Order Administrator Name Role Phone Alejandrina Flores MD Primary Care Provider + Adelaide Clements MD Primary Care Provider [phone] Zain López PA-C Unavailable [phone] Dennis Contreras MD Primary Care Provider [phone] Freddie Mcdonald MD Unavailable Reason for Referral * Mammography (Routine) - Closed Specialty Diagnoses / Procedures Referred By Eladia t Referred To Contact Diagnoses Encounter for screening mammogram for malignant neoplasm of breast Procedures MM digital mammo screen with mariangel bilateral Alejandrina Flores MD [address] [facility] [address] [place] [address] Phone: tel: fax: Referral ID Status Reason Start Date Expiration Date Visits Re quested Visits Authorized [id number] Closed 06/29/2022 12/26/2022 1 1 Encounter Details Date Type Department Care Team (Late st Contact Info) Description 06/29/2022 Outside Orders [facility] Central Scheduling [address] [place] [address] Alejandrina Flores MD [address] [facility] [address] [place] [address] Encounter for screening mammogram for malignant neoplasm [...] the next mammogram. At our facility, a [place] marker is positioned over a visible skin lesion and a linear marker is used to indicate a scar. A triangular marker is placed on a self reported palpable finding. Narrative 07/17/2022 5:50 PM EST PROCEDURE: Digital screening mammogram with Digital Breast Tomosynthesis (DBT). REASON FOR EXAM: Routine screening. FAMILY HISTORY: Intermediate Risk family history of breast cancer. COMPARISON STUDY: 2017 from [facility] FINDINGS: Craniocaudal and mediolateral oblique images [...] breast documented in this encounter Care Teams Order Administrator Relationship Specialty Start Date End Date Alejandrina Flores MD [address] [facility] [address] [place] [address] PCP - General Obstetrics and Gynecology 07/17/2201/05 Adelaide Clements MD [address] [facility] [address] [place] [address] PCP - General Family Medicine 01/20/23 12/01/23 Dennis Contreras MD [address] [place] [address] PCP - General Family Medicine 12/02/23 Zain López PA-C [address] [place] [address] Orthopedic Surgery 07/27/23 Freddie Mcdonald MD [address] [place] [address] Sports Medicine 06/26/24 documented as of this encounter
--- OUTSIDE RECORDS SUMMARY | 2024-12-19 11:44 | XMS_ITS | Clinical Summary ---
Author Organization [employer] ([place], [place], [place], [place]) Address [address] [place] [address] Care Team Providers Care Esthetic Dermatologist Name Role Phone Zain López PA-C Unavailable [phone] Dennis Contreras MD Primary Care Provider [phone] Freddie Mcdonald MD Unavailable Allergies Active Allergy Reactions Criticality Noted Date Comments Latex 09/24/2021 Medications clobetasoL (TEMOVATE) 0.05 % cream Apply topically 2 (two) times daily as needed Apply topically to affected area twice daily.. 60 g 11 3 Active neomycin-bacitra jhp-ltlmxbmvf-ks drocortisone (CORTISPORIN) 3.5-400-10,000 mg-unit/g-1% ophth ointmentIndicati ons:[place] eye disease of right eye Place 1 [...] Department Care Team Description 10/11/2024 Orders Only [facility] Orthopedics - [address] [address] Freddie Mcdonald MD Traumatic rupture of supraspinatus tendon of left shoulder, initial encounter; Injury of left shoulder, initial encounter 09/28/2024 1:15 PM EDT Office Visit [facility] Orthopedics [facility] [address] [place] [address] Freddie Mcdonald MD Nontraumatic incomplete tear of [...] Date Jelani rded Speak language other than Congolese at home Not on file 06/18/2023 Want [...] - 2023-2 5 season) 2024 Influenza Vaccine (#1) 2025 Tobacco Cessation Counseling and Screening (12+) 09/14/2025 09/14/2024 Breast Cancer Screening 06/08/2026 06/08/19 25, 12/02/2023, 10/28/2023, Additional history exists Procedures Procedure Name Priority Date/Time Associated Diagnosis Comments MM DIGITAL MAMMO DIAGNOSTIC WITH ALISA RIGHT Routine 06/08/2024 1:51 PM EST Abnormal mammogram LIQUID-BASED PAP SMEAR, SCREENING AP Routine 04/28/2019 12:00 AM EST from Last 3 Months or Most Recently Relevant to Health Maintenance Results * MM digital mammo diagnostic with alisa [...] recommended imaging studies/procedures. At our facility, a [place] marker is positioned over a visible skin [...] family history of breast cancer COMPARISON STUDY: [facility] November 2023 through 2018 FINDINGS: Craniocaudal [...] EST) Genital CERVIX UTERI STRUCTURE / Unknown us Historical Provider PATHOLOGY/CYTOLOGY ORDERA GAIL Final Result [facility] from Last 3 Months or Most Recently Relevant to Health Maintenance Insurance [facility] [place] Care Teams Esthetic Dermatologist Relationship Specialty Start Date End Date Dennis Contreras MD [address] [place] [address] PCP - General Family Medicine 12/02/23 Zain López PA-C [address] [place] [address] Orthopedic Surgery 07/27/23 Freddie Mcdonald MD [address] [place] [address] Sports Medicine 06/26/24
--- OUTSIDE RECORDS SUMMARY | 2024-12-19 11:44 | XMS_ITS | Encounter Summary ---
Author Organization [employer] ([place], [place], [place], [place]) Address [address] [place] [address] Care Team Providers Care Shoes Hand Sewer Name Role Phone Adelaide Clements MD Primary Care Provider [phone] Zain López PA-C Unavailable [phone] Dennis Contreras MD Primary Care Provider [phone] Freddie Mcdonald MD Unavailable Reason for Visit * Reason Onset Date Comments Medication Refill 05/24/2023 Encounter Details Date Type Department Care Team (Late st Contact Info) Description 05/24/2023 Refill [facility] Primary Care [address] [address] Hasmukh Workman MD [address] [place] [address] Social History Tobacco Use Types Packs/Day Years [...] on filedocumented in this encounter Care Teams Shoes Hand Sewer Relationship Specialty Start Date End Date Adelaide Clements MD PCP - General Family Medicine 01/20/23 12/01/23 Dennis Contreras MD [address] [place] [address] PCP - General Family Medicine 12/02/23 Zain López PA-C [address] [place] [address] Orthopedic Surgery 07/27/23 Freddie Mcdonald MD [address] [place] [address] Sports Medicine 06/26/24 documented as of this encounter
--- OUTSIDE RECORDS SUMMARY | 2024-12-19 11:44 | XMS_ITS | Referral Summary ---
Author Organization [employer] ([place], [place], [place], [place]) Address [address] [place] [address] Care Team Providers Care Stick Welder Name Role Phone Zain López PA-C Unavailable [phone] Dennis Contreras MD Primary Care Provider [phone] Freddie Mcdonald MD Unavailable Encounters Date Type Department Care Team Description 10/11/2024 Orders Only [facility] Orthopedics - [address] [address] Freddie Mcdonald MD Traumatic rupture of supraspinatus tendon of left shoulder, initial encounter; Injury of left shoulder, initial encounter 09/28/2024 1:15 PM EDT Office Visit [facility] [address] [place] [address] Freddie Mcdonald MD Nontraumatic incomplete tear of left rotator cuff (Primary Dx) from Last 3 Months Allergies Active Allergy Reactions Criticality Noted Date Comments Latex 09/24/2021 Medications clobetasoL (TEMOVATE) 0.05 % cream Apply topically 2 (two) times daily as needed Apply topically to affected area twice daily.. 60 g 11 3 Active neomycin-bacitra kzz-dlplfgrwl-og drocortisone (CORTISPORIN) 3.5-400-10,000 mg-unit/g-1% ophth ointmentIndicati ons:[place] eye disease of right eye Place 1 [...] Date Jelani rded Speak language other than Montserratian at home Not on file 06/18/2023 Want [...] recommended imaging studies/procedures. At our facility, a [place] marker is positioned over a visible [...] family history of breast cancer COMPARISON STUDY: [facility] November 2023 through 2017 FINDINGS: Craniocaudal and [...] Most Recently Relevant to Health Maintenance Insurance [facility] Care Teams Stick Welder Relationship Specialty Start Date End Date Dennis Contreras MD [address] [place] [address] PCP - General Family Medicine 12/02/23 Zain López PA-C [address] [place] [address] Orthopedic Surgery 07/27/23 Freddie Mcdonald MD [address] [place] [address] Sports Medicine 06/26/24
--- OUTSIDE RECORDS SUMMARY | 2024-12-19 11:44 | XMS_ITS | Encounter Summary ---
Author Organization [employer] ([place], [place], [place], [place]) Address [address] [place] [address] Care Team Providers Care Veneer Clipper Name Role Phone Adelaide Clements MD Primary Care Provider [phone] Zain López PA-C Unavailable [phone] Dennis Contreras MD Primary Care Provider [phone] Freddie Mcdonald MD Unavailable Reason for Visit * Reason Onset Date Comments Medication Refill 11/18/2023 Encounter Details Date Type Department Care Team (Late st Contact Info) Description 11/18/2023 Refill [facility] Primary Care [address] [place] [address] Nohelia Esquivel APRN [address] [place] [address] Social History Tobacco Use Types [...] Date Jelani rded Speak language other than Venezuelan at home Not on file 06/18/2023 Want [...] on filedocumented in this encounter Care Teams Veneer Clipper Relationship Specialty Start Date End Date Adelaide Clements MD PCP - General Family Medicine 01/20/23 12/01/23 Dennis Contreras MD [address] [place] [address] PCP - General Family Medicine 12/02/23 Zain López PA-C [address] [place] [address] Orthopedic Surgery 07/27/23 [place] Mcdonald MD [address] [place] [address] Sports Medicine 06/26/24 documented as of this encounter
--- OUTSIDE RECORDS SUMMARY | 2024-12-19 11:44 | XMS_ITS | Encounter Summary ---
Author Organization [employer] ([place], [place], [place], [place]) Address [address] [place] [address] Care Team Providers Care Exhaust Worker Name Role Phone Adelaide Clements MD Primary Care Provider [phone] Zain López PA-C Unavailable [phone] Dennis Contreras MD Primary Care Provider [phone] Freddie Mcdonald MD Unavailable Reason for Referral * Mammography (Routine) - Closed Specialty Diagnoses / Procedures Referred By Eladia gagnon Referred To Contact Diagnoses Visit for screening mammogram Procedures MM digital mammo screen with mariangel bilateral Nohelia Esquivel APRN [address] [place] [address] Phone: tel: fax: Referral ID Status Reason Start Date Expiration Date Visits Re quested Visits Authorized [id number] Closed 08/02/2023 01/29/2024 1 1 Encounter Details Date Type Department Care Team (Late st Contact Info) Description 08/02/2023 Outside Orders [facility] Central Scheduling [address] [place] [address] Nohelia Esquivel APRN [address] [place] [address] Visit for screening mammogram (Primary [...] Date Jelani rded Speak language other than Greek at home Not on file 06/18/2023 Want [...] the next mammogram. At our facility, a [place] marker is positioned over a visible skin [...] mammogram documented in this encounter Care Teams Exhaust Worker Relationship Specialty Start Date End Date Adelaide Clements MD PCP - General Family Medicine 01/20/23 12/01/23 Dennis Contreras MD [address] [place] [address] PCP - General Family Medicine 12/02/23 Zain López PA-C [address] [place] [address] Orthopedic Surgery 07/27/23 Freddie Mcdonald MD [address] [place] [address] Sports Medicine 06/26/24 documented as of this encounter
--- OUTSIDE RECORDS SUMMARY | 2024-12-19 11:44 | XMS_ITS | Encounter Summary ---
Author Organization [employer] ([place], [place], [place], [place]) Address [address] [place] [address] Care Team Providers Care Family Program Specialist Name Role Phone Adelaide Clements MD Primary Care Provider [phone] Zain López PA-C Unavailable [phone] Dennis Contreras MD Primary Care Provider [phone] Freddie Mcdonald MD Unavailable Reason for Visit * Reason Comments Medication Refill Encounter Details Date Type Department Care Team (Late st Contact Info) Description 11/19/2023 Refill [facility] Primary Care [address] [place] [address] Nohelia Esquivel APRN [address] [place] [address] Social History Tobacco Use Types [...] Date Jelani rded Speak language other than Cameroonian at home Not on file 06/18/2023 Want [...] on filedocumented in this encounter Care Teams Family Program Specialist Relationship Specialty Start Date End Date Adelaide Clements MD PCP - General Family Medicine 01/20/23 12/01/23 Dennis Contreras MD [address] [place], [place] [address] PCP - General Family Medicine 12/02/23 Zain López PA-C [address] [place] [address] Orthopedic Surgery 07/27/23 Freddie Mcdonald MD [address] [place] [address] Sports Medicine 06/26/24 documented as of this encounter
--- NOTE | 2024-12-19 12:00 | NM_ITS ---
APPROVED REPORT Exam: Nuclear Stress Test Indication: Chest pain, SOB, Syncope, Former tobaccco use, Family history Patient Location: Outpatient Stress Tech: Loni Deras ID Tech:Vero Bucio, ARRT, RT (R)(N) Ht: 5 ft 4 in Wt: 125 lbs Bra Size: F HR: 63 bpm BP: 139/83 mmHg BSA: 1.60 m2 TID: 1.08 BMI: 21.4 History: Chest pain, SOB, Syncope, Former tobaccco use, Family history Procedure: Patient received 0.4 mg of intravenous Lexiscan, resting heart rate 63 bpm, resting blood pressure 139/83 mmHg, with Lexiscan maximum heart rate achieved was 105 bpm which is % of the maximum predicted heart rate and blood pressure was 165/84 mmHg. With Lexiscan, patient denied any complaint of chest pain. Cardiac Stress and Resting SPECT Images: Cardiac Stress and Resting SPECT images were obtained using technetium 99m Myoview 32.3 mCi stress and 10.32 mCi at rest. Resting and stress imaging in supine and prone position demonstrate no evidence of fixed or reversible perfusion defects. Gated imaging demonstrates normal global and regional LV systolic function. LVEF is calculated at 61%. Conclusion: No evidence of fixed or reversible perfusion defects. Gated imaging demonstrates normal global and regional LV systolic function. LVEF is calculated at 61%. Electronically signed by : Olesya Reyes MD 12/20/2024 11:52:36
[2024-12-19] MEDS: ISOTOPE MYOVIEW (PER STUDY) 1 DOSE IV (13:09)
[2024-12-19] MEDS: SODIUM CHLORIDE 0.9% 10ML SYR (RAD ONLY) 10 ML IV ×2 (13:09)
== END 2024-12-19 23:59 | disposition home or self-care (01) ==
LOC: RAD 11:42
PROVIDERS: PCP Family Medicine; Visit Provider Nurse Practitioner Family
DX: I49.1 Atrial premature depolarization (principal); R55 Syncope and collapse; Z87.891 Personal history of nicotine dependence
CPT/HCPCS: 78452; 93016; 93017; 93018; A9502; J2785

== ENCOUNTER 2025-01-04 12:00 | Outpatient (CLI) | payer OTHER, SELFPAY ==
[2025-01-04 15:23] LABS: Creatine Kinase 78 U/L (30-135)
[2025-01-04 15:29] LABS: C-Reactive Protein 2.2 mg/L (0-4)
--- OUTSIDE RECORDS SUMMARY | 2025-01-05 13:48 | XMS_ITS | Encounter Summary ---
Author Organization [employer] ([place], [place], [place], [place]) Address [address] [place] [address] Care Team Providers Care Sample Display Preparer Name Role Phone Alejandrina Flores MD Primary Care Provider + Adelaide Clements MD Primary Care Provider Zain López PA-C Unavailable [phone] Dennis Contreras MD Primary Care Provider [phone] Freddie Mcdonald MD Unavailable Reason for Referral * Mammography (Routine) - Closed Specialty Diagnoses / Procedures Referred By Eladia t Referred To Contact Diagnoses Encounter for screening mammogram for malignant neoplasm of breast Procedures MM digital mammo screen with mariangel bilateral Alejandrina Flores MD [address] [facility] [address] [place] [address] Phone: tel: fax: Referral ID Status Reason Start Date Expiration Date Visits Re quested Visits Authorized [id number] Closed 06/29/2022 12/26/2022 1 1 Encounter Details Date Type Department Care Team (Late st Contact Info) Description 06/29/2022 Outside Orders [facility] Central Scheduling [address] [place] [address] Alejandrina Flores MD [address] [facility] [address] [place], [place] [address] Encounter for screening mammogram for malignant neoplasm [...] the next mammogram. At our facility, a [place] marker is positioned over a visible skin lesion and a linear marker is used to indicate a scar. A triangular marker is placed on a self reported palpable finding. Narrative 07/17/2022 5:50 PM EST PROCEDURE: Digital screening mammogram with Digital Breast Tomosynthesis (DBT). REASON FOR EXAM: Routine screening. FAMILY HISTORY: Intermediate Risk family history of breast cancer. COMPARISON STUDY: 2017 from [facility] FINDINGS: Craniocaudal and mediolateral oblique images of [...] breast documented in this encounter Care Teams Sample Display Preparer Relationship Specialty Start Date End Date Alejandrina Flores MD [address] [facility] [address] [place] [address] PCP - General Obstetrics and Gynecology 07/17/2201/05 Adelaide Clements MD [address] [facility] [address] [place] [address] PCP - General Family Medicine 01/20/23 12/01/23 Dennis Contreras MD [address] [place] [address] PCP - General Family Medicine 12/02/23 Zain López PA-C [address] [place] [address] Orthopedic Surgery 07/27/23 Freddie Mcdonald MD [address] [place] [address] Sports Medicine 06/26/24 documented as of this encounter
--- OUTSIDE RECORDS SUMMARY | 2025-01-05 13:48 | XMS_ITS | Referral Summary ---
Author Organization [employer] ([place], [place], [place], [place]) Address [address] [place] [address] Care Team Providers Care Branch Account Manager Name Role Phone Zain López PA-C Unavailable [phone] Dennis Contreras MD Primary Care Provider [phone] Freddie Mcdonald MD Unavailable Encounters Date Type Department Care Team Description 10/11/2024 Orders Only [facility] Orthopedics - [address] [address] Freddie Mcdonald MD Traumatic rupture of supraspinatus tendon of left shoulder, initial encounter; Injury of left shoulder, initial encounter from Last 3 Months Allergies Active Allergy Reactions Criticality Noted Date Comments Latex 09/24/2021 Medications clobetasoL (TEMOVATE) 0.05 % cream Apply topically 2 (two) times daily as needed Apply topically to affected area twice daily.. 60 g 11 3 Active neomycin-bacitra ova-fzfbkwhhd-nm drocortisone (CORTISPORIN) 3.5-400-10,000 mg-unit/g-1% ophth ointmentIndicati ons:[place] eye disease of right eye Place 1 [...] Date Jelani rded Speak language other than Azeri at home Not on file 06/18/2023 Want [...] recommended imaging studies/procedures. At our facility, a [place] marker is positioned over a visible skin [...] family history of breast cancer COMPARISON STUDY: [facility] November 2023 through 2017 FINDINGS: [...] (CAD). Cynthia Rodriguez MD IMG MAMMOGRAPHY ORDERABLES Babrie l Result * Liquid-based pap smear, screening (04/28/2019 12:00 AM EST) Genital CERVIX UTERI STRUCTURE / Unknown Historical Provider PATHOLOGY/CYTOLOGY ORDERA BLES Final Result [facility] from Last 3 Months or Most Recently Relevant to Health Maintenance Insurance [facility] Care Teams Branch Account Manager Relationship Specialty Start Date End Date Dennis Contreras MD [address] [place] [address] PCP - General Family Medicine 12/02/23 Zain López PA-C [address] [place] [address] Orthopedic Surgery 07/27/23 Freddie Mcdonadl MD [address] [place] [address] Sports Medicine 06/26/24
--- OUTSIDE RECORDS SUMMARY | 2025-01-05 13:48 | XMS_ITS | Encounter Summary ---
Author Organization [employer] ([place], [place], [place], [place]) Address [address] [place] [address] Care Team Providers Care Wood Borer Name Role Phone Adelaide Clements MD Primary Care Provider [phone] Zain López PA-C Unavailable [phone] Dennis Contreras MD Primary Care Provider + [phone] Freddie Mcdonald MD Unavailable Reason for Visit * Reason Onset Date Comments Medication Refill 05/24/2023 Encounter Details Date Type Department Care Team (Late st Contact Info) Description 05/24/2023 Refill [facility] Primary Care [address] [address] Hasmukh Workman MD [address] [place] [address] Social History Tobacco Use Types Packs/Day Years [...] on filedocumented in this encounter Care Teams Wood Borer Relationship Specialty Start Date End Date Adelaide Clements MD PCP - General Family Medicine 01/20/23 12/01/23 Dennis Contreras MD [address] [place] [address] PCP - General Family Medicine 12/02/23 Zain López PA-C [address] [place] [address] Orthopedic Surgery 07/27/23 Freddie Mcdonald MD [address] [place] [address] Sports Medicine 06/26/24 documented as of this encounter
--- OUTSIDE RECORDS SUMMARY | 2025-01-05 13:48 | XMS_ITS | Clinical Summary ---
Author Organization [employer] ([place], [place], [place], [place]) Address [address] [place] [address] Care Team Providers Care Work Order Detailer Name Role Phone Zain López PA-C Unavailable Dennis Contreras MD Primary Care Provider [phone] Freddie Mcdonald MD Unavailable Allergies Active Allergy Reactions Criticality Noted Date Comments Latex 09/24/2021 Medications clobetasoL (TEMOVATE) 0.05 % cream Apply topically 2 (two) times daily as needed Apply topically to affected area twice daily.. 60 g 11 3 Active neomycin-bacitra nla-vyqiufsrs-kv drocortisone (CORTISPORIN) 3.5-400-10,000 mg-unit/g-1% ophth ointmentIndicati ons:[place] eye disease of right eye Place 1 [...] Department Care Team Description 10/11/2024 Orders Only [facility] Orthopedics - [address] [address] Freddie Mcdonald MD Traumatic rupture of supraspinatus tendon of left shoulder, initial encounter; Injury of left shoulder, initial encounter from Last 3 Months Family History Medical [...] Date Jelani rded Speak language other than Swedish at home Not on file 06/18/2023 Want [...] recommended imaging studies/procedures. At our facility, a [place] marker is positioned over a visible skin [...] family history of breast cancer COMPARISON STUDY: [facility] November 2023 through 2017 FINDINGS: [...] Most Recently Relevant to Health Maintenance Insurance [facility] [place] Care Teams Work Order Detailer Relationship Specialty Start Date End Date Dennis Contreras MD [address] [place] [address] PCP - General Family Medicine 12/02/23 Zain López PA-C [address] [place] [address] Orthopedic Surgery 07/27/23 Freddie Mcdonald MD [address] [place] [address] Sports Medicine 06/26/24
--- OUTSIDE RECORDS SUMMARY | 2025-01-05 13:48 | XMS_ITS | Encounter Summary ---
Author Organization [employer] ([place], [place], [place], [place]) Address [address] [place] [address] Care Team Providers Care Public Message Service Supervisor Name Role Phone Adelaide Clements MD Primary Care Provider [phone] Zain López PA-C Unavailable [phone] Dennis Contreras MD Primary Care Provider [phone] Freddie Mcdonald MD Unavailable Reason for Visit * Reason Comments Medication Refill Encounter Details Date Type Department Care Team (Late st Contact Info) Description 11/19/2023 Refill [facility] Primary Care [address] [place] [address] Nohelia Esquivel APRN [address] [place] [address] Social History Tobacco Use Types [...] Date Jelani rded Speak language other than Anguillan at home Not on file 06/18/2023 Want [...] on filedocumented in this encounter Care Teams Public Message Service Supervisor Relationship Specialty Start Date End Date Adelaide Clements MD PCP - General Family Medicine 01/20/23 12/01/23 Dennis Contreras MD [address] [place], [place] [address] PCP - General Family Medicine 12/02/23 Zain López PA-C [address] [place] [address] Orthopedic Surgery 07/27/23 Freddie Mcdonald MD [address] [place] [address] Sports Medicine 06/26/24 documented as of this encounter
--- OUTSIDE RECORDS SUMMARY | 2025-01-05 13:48 | XMS_ITS | Encounter Summary ---
Author Organization [employer] ([place], [place], [place], [place]) Address [address] [place] [address] Care Team Providers Care Special Education Para Professional Name Role Phone Adelaide Clements MD Primary Care Provider [phone] Zain López PA-C Unavailable [phone] Dennis Contreras MD Primary Care Provider + [phone] Freddie Mcdonald MD Unavailable Reason for Referral * Mammography (Routine) - Closed Specialty Diagnoses / Procedures Referred By Eladia gagnon Referred To Contact Diagnoses Visit for screening mammogram Procedures MM digital mammo screen with mariangel bilateral Nohelia Esquivel APRN [address] [place] [address] Phone: tel: fax: Referral ID Status Reason Start Date Expiration Date Visits Re quested Visits Authorized [id number] Closed 08/02/2023 01/29/2024 1 1 Encounter Details Date Type Department Care Team (Late st Contact Info) Description 08/02/2023 Outside Orders [facility] Central Scheduling [address] [place] [address] Nohelia Esquivel APRN [address] [place] [address] Visit for screening mammogram (Primary [...] Date Jelani rded Speak language other than Macedonian at home Not on file 06/18/2023 Want [...] the next mammogram. At our facility, a [place] marker is [...] mammogram documented in this encounter Care Teams Special Education Para Professional Relationship Specialty Start Date End Date Adelaide Clements MD PCP - General Family Medicine 01/20/23 12/01/23 Dennis Contreras MD [address] [place] [address] PCP - General Family Medicine 12/02/23 Zain López PA-C [address] [place] [address] Orthopedic Surgery 07/27/23 Freddie Mcdonald MD [address] [place] [address] Sports Medicine 06/26/24 documented as of this encounter
--- OUTSIDE RECORDS SUMMARY | 2025-01-05 13:48 | XMS_ITS | Encounter Summary ---
Author Organization [employer] ([place], [place], [place], [place]) Address [address] [place] [address] Care Team Providers Care Public Defender Name Role Phone Adelaide Clements MD Primary Care Provider [phone] Zain López PA-C Unavailable [phone] Dennis Contreras MD Primary Care Provider + [phone] Freddie Mcdonald MD Unavailable Reason for Visit * Reason Onset Date Comments Medication Refill 11/18/2023 Encounter Details Date Type Department Care Team (Late st Contact Info) Description 11/18/2023 Refill [facility] Primary Care [address] [place] [address] Nohelia Esquivel APRN [address] [place] [address] Social History Tobacco Use Types [...] Date Jelani rded Speak language other than Tunisian at home Not on file 06/18/2023 Want [...] filedocumented in this encounter Care Teams Public Defender Relationship Specialty Start Date End Date Adelaide Clements MD PCP - General Family Medicine 01/20/23 12/01/23 Dennis Contreras MD [address] [place] [address] PCP - General Family Medicine 12/02/23 Zain López PA-C [address] [place] [address] Orthopedic Surgery 07/27/23 Freddie Mcdonald MD [address] [place] [address] Sports Medicine 06/26/24 documented as of this encounter
--- OUTSIDE RECORDS SUMMARY | 2025-01-05 13:48 | XMS_ITS | Encounter Summary ---
Author Organization [employer] ([place], [place], [place], [place]) Address [address] [place] [address] Care Team Providers Care Horizontal Boring Mill Operator Name Role Phone Adelaide Clements MD Primary Care Provider [phone] Zain López PA-C Unavailable [phone] Dennis Contreras MD Primary Care Provider + [phone] Freddie Mcdonald MD Unavailable Reason for Visit * Reason Comments Medication Refill Encounter Details Date Type Department Care Team (Late st Contact Info) Description 02/21/2023 Refill [facility] Primary Care - [address] [address] Hasmukh Workman MD [address] [facility] [address] [place] [address] Social History Tobacco Use Types Packs/Day Years [...] on filedocumented in this encounter Care Teams Horizontal Boring Mill Operator Relationship Specialty Start Date End Date Adelaide Clements MD PCP - General Family Medicine 01/20/23 12/01/23 Dennis Cnotreras MD [address] [place] [address] PCP - General Family Medicine 12/02/23 Zain López PA-C [address] [place] [address] Orthopedic Surgery 07/27/23 Freddie Mcdonald MD [address] [place] [address] Sports Medicine 06/26/24 documented as of this encounter
--- OUTSIDE RECORDS SUMMARY | 2025-01-05 13:48 | XMS_ITS | Encounter Summary ---
Author Organization [employer] ([place], [place], [place], [place]) Address [address] [place] [address] Care Team Providers Care Account Coordinator Name Role Phone Zain López PA-C Unavailable [phone] Dennis Contreras MD Primary Care Provider + Freddie Mcdonald MD Unavailable Reason for Visit * Reason Comments Medication Refill Encounter Details Date Type Department Care Team (Late st Contact Info) Description 02/16/2024 Refill [facility] Primary Care [address] [place] [address] Nohelia Esquivel APRN [address] [place] [address] Intractable migraine with aura without [...] Date Jelani rded Speak language other than Nicaraguan at home Not on file 06/18/2023 Want [...] migrainosus documented in this encounter Care Teams Account Coordinator Relationship Specialty Start Date End Date Dennis Contreras MD [address] [place] [address] PCP - General Family Medicine 12/02/23 Zain López PA-C [address] [place] [address] Orthopedic Surgery 07/27/23 Freddie Mcdonald MD [address] [place] [address] Sports Medicine 06/26/24 documented as of this encounter
== END 2025-01-04 23:59 | disposition home or self-care (01) ==
LOC: LAB.DROPOF 01-05 13:47
PROVIDERS: PCP Family Medicine; Visit Provider Family Medicine
DX: M79.10 Myalgia, unspecified site (principal)
CPT/HCPCS: 82085; 82550; 86140

== ENCOUNTER 2025-01-09 12:01 | Outpatient (CLI) | payer OTHER, SELFPAY ==
--- NOTE | 2025-01-09 12:04 | XR_ITS ---
FINAL REPORT CLINICAL HISTORY: pain COMPARISON: None FINDINGS: LEFT HIP: Two views of the left hip with an AP view of the pelvis demonstrate no acute fracture or dislocation. The joint spaces appear normal. The visualized bony structures are well aligned. No soft tissue abnormality is seen. IMPRESSION: No acute bony abnormality. Reviewed, Interpreted and Dictated by Hoang Antonio MD Transcribed by Tarah Langley Authenticated and [facility]
--- NOTE | 2025-01-09 12:04 | XR_ITS ---
FINAL REPORT CLINICAL HISTORY: pain COMPARISON: None FINDINGS: RIGHT HIP Two views of the right hip demonstrate no acute fracture or dislocation. The joint spaces appear normal. The visualized bony structures are well aligned. No soft tissue abnormality is seen. IMPRESSION: No acute bony abnormality. Reviewed, Interpreted and Dictated by Hoang Antonio MD Transcribed by Traah Langley Authenticated and [facility]
--- OUTSIDE RECORDS SUMMARY | 2025-01-09 12:04 | XMS_ITS | Encounter Summary ---
Author Organization [email or web address] ([place], [place], [place], [place]) Address [address] [place] [address] Care Team Providers Care Sec Reporting Consultant Name Role Phone Alejandrina Flores MD Primary Care Provider + Adelaide Clements MD Primary Care Provider [phone] Zain López PA-C Unavailable [phone] Dennis Contreras MD Primary Care Provider [phone] Freddie Mcdonald MD Unavailable Reason for Referral * Mammography (Routine) - Closed Specialty Diagnoses / Procedures Referred By Eladia t Referred To Contact Diagnoses Encounter for screening mammogram for malignant neoplasm of breast Procedures MM digital mammo screen with mariangel bilateral Alejandrina Flores MD [address] [facility] [address] [place] [address] Phone: tel: fax: Referral ID Status Reason Start Date Expiration Date Visits Re quested Visits Authorized [id number] Closed 06/29/2022 12/26/2022 1 1 Encounter Details Date Type Department Care Team (Late st Contact Info) Description 06/29/2022 Outside Orders [facility] Central Scheduling [address] [place] [address] Alejandrina Flores MD [address] [facility] [address] [place] [address] Encounter for screening mammogram for malignant neoplasm [...] the next mammogram. At our facility, a [place]ht[place] marker is positioned over a visible skin lesion and a linear marker is used to indicate a scar. A triangular marker is placed on a self reported palpable finding. Narrative 07/17/2022 5:50 PM EST PROCEDURE: Digital screening mammogram with Digital Breast Tomosynthesis (DBT). REASON FOR EXAM: Routine screening. FAMILY HISTORY: Intermediate Risk family history of breast cancer. COMPARISON STUDY: 2017 from [facility] FINDINGS: Craniocaudal and mediolateral oblique images [...] breast documented in this encounter Care Teams Sec Reporting Consultant Relationship Specialty Start Date End Date Alejandrina Flores MD [address] [facility] [address] [place] [address] PCP - General Obstetrics and Gynecology 07/17/2201/05 Adelaide Clements MD [address] [facility] [address] [place] [address] PCP - General Family Medicine 01/20/23 12/01/23 Dennis Contreras MD [address] [place] [address] PCP - General Family Medicine 12/02/23 Zain López PA-C [address] [place] [address] Orthopedic Surgery 07/27/23 Freddie Mcdonald MD [address] [place] [address] Sports Medicine 06/26/24 documented as of this encounter
--- OUTSIDE RECORDS SUMMARY | 2025-01-09 12:04 | XMS_ITS | Clinical Summary ---
Author Organization [employer] ([place], [place], [place], [place]) Address [address] [place] [address] Care Team Providers Care Buckler And Lacer Name Role Phone Zain López PA-C Unavailable [phone] Dennis Contreras MD Primary Care Provider [phone] Freddie Mcdonald MD Unavailable Allergies Active Allergy Reactions Criticality Noted Date Comments Latex 09/24/2021 Medications clobetasoL (TEMOVATE) 0.05 % cream Apply topically 2 (two) times daily as needed Apply topically to affected area twice daily.. 60 g 11 3 Active neomycin-bacitra mgq-cqhmmjlpb-ls drocortisone (CORTISPORIN) 3.5-400-10,000 mg-unit/g-1% ophth ointmentIndicati ons:[place] eye disease of right eye Place 1 [...] Department Care Team Description 10/11/2024 Orders Only [facility] Orthopedics - [address] [address] Freddie Mcdonald MD Traumatic rupture of supraspinatus [...] Date Jelani rded Speak language other than Swiss at home Not on file 06/18/2023 Want [...] recommended imaging studies/procedures. At our facility, a [place] marker is positioned over a visible skin [...] family history of breast cancer COMPARISON STUDY: [facility] November 2023 through 2017 FINDINGS: Craniocaudal [...] Most Recently Relevant to Health Maintenance Insurance [facility] [place] Care Teams Buckler And Lacer Relationship Specialty Start Date End Date Dennis Contreras MD [address] [place] [address] PCP - General Family Medicine 12/02/23 Zain López PA-C [address] [place] [address] Orthopedic Surgery 07/27/23 Freddie Mcdonald MD [address] [place] [address] Sports Medicine 06/26/24
--- OUTSIDE RECORDS SUMMARY | 2025-01-09 12:04 | XMS_ITS | Encounter Summary ---
Author Organization [employer] ([place], [place], [place], [place]) Address [address] [place] [address] Care Team Providers Care Coil Tester Name Role Phone Adelaide Clements MD Primary Care Provider [phone] Zain López PA-C Unavailable [phone] Dennis Contreras MD Primary Care Provider + [phone] Freddie Mcdonald MD Unavailable Reason for Visit * Reason Onset Date Comments Medication Refill 11/18/2023 Encounter Details Date Type Department Care Team (Late st Contact Info) Description 11/18/2023 Refill [facility] Primary Care [address] [place] [address] Nohelia Esquivel APRN [address] [place] [address] Social History Tobacco Use Types [...] Date Jelani rded Speak language other than Jordanian at home Not on file 06/18/2023 Want [...] on filedocumented in this encounter Care Teams Coil Tester Relationship Specialty Start Date End Date Adelaide Clements MD PCP - General Family Medicine 01/20/23 12/01/23 Dennis Contreras MD [address] [place] [address] PCP - General Family Medicine 12/02/23 Zain López PA-C [address] [place] [address] Orthopedic Surgery 07/27/23 Freddie Mcdonald MD [address] [place] [address] Sports Medicine 06/26/24 documented as of this encounter
--- OUTSIDE RECORDS SUMMARY | 2025-01-09 12:04 | XMS_ITS | Encounter Summary ---
Author Organization [employer] ([place], [place], [place], [place]) Address [address] [place] [address] Care Team Providers Care Quarry Supervisor Dimension Stone Name Role Phone Zain López PA-C Unavailable [phone] Dennis Contreras MD Primary Care Provider + Freddie Mcdonald MD Unavailable Reason for Visit * Reason Comments Medication Refill Encounter Details Date Type Department Care Team (Late st Contact Info) Description 02/16/2024 Refill [facility] Primary Care [address] [place] [address] Nohelia Esquivel APRN [address] [place] [address] Intractable migraine with aura without [...] Date Jelani rded Speak language other than Canadian at home Not on file 06/18/2023 Want [...] migrainosus documented in this encounter Care Teams Quarry Supervisor Dimension Stone Relationship Specialty Start Date End Date Dennis Contreras MD [address] [place] [address] PCP - General Family Medicine 12/02/23 Zain López PA-C [address] [place] [address] Orthopedic Surgery 07/27/23 Freddie Mcdonald MD [address] [place] [address] Sports Medicine 06/26/24 documented as of this encounter
--- OUTSIDE RECORDS SUMMARY | 2025-01-09 12:04 | XMS_ITS | Encounter Summary ---
Author Organization [employer] ([place], [place], [place], [place]) Address [address] [place] [address] Care Team Providers Care Proofer Apprentice Name Role Phone Adelaide Clements MD Primary Care Provider [phone] Zain López PA-C Unavailable [phone] Dennis Contreras MD Primary Care Provider + [phone] Freddie Mcdonald MD Unavailable Reason for Visit * Reason Onset Date Comments Medication Refill 05/24/2023 Encounter Details Date Type Department Care Team (Late st Contact Info) Description 05/24/2023 Refill [facility] Primary Care [address] [address] Hasmukh Workman MD [address] [place] [address] Social History Tobacco Use Types Packs/Day Years [...] on filedocumented in this encounter Care Teams Proofer Apprentice Relationship Specialty Start Date End Date Adelaide Clements MD PCP - General Family Medicine 01/20/23 12/01/23 Dennis Contreras MD [address] [place] [address] PCP - General Family Medicine 12/02/23 Zain López PA-C [address] [place] [address] Orthopedic Surgery 07/27/23 Freddie Mcdonald MD [address] [place] [address] Sports Medicine 06/26/24 documented as of this encounter
--- OUTSIDE RECORDS SUMMARY | 2025-01-09 12:04 | XMS_ITS | Referral Summary ---
Author Organization [employer] ([place], [place], [place], [place]) Address [address] [place] [address] Care Team Providers Care Rod Cup Filler Name Role Phone Zain López PA-C Unavailable [phone] Dennis Contreras MD Primary Care Provider [phone] Freddie Mcdonald MD Unavailable Encounters Date Type Department Care Team Description 10/11/2024 Orders Only [facility] Orthopedics - [address] [address] Freddie Mcdonald MD Traumatic rupture of supraspinatus tendon of left shoulder, initial encounter; Injury of left shoulder, initial encounter from Last 3 Months Allergies Active Allergy Reactions Criticality Noted Date Comments Latex 09/24/2021 Medications clobetasoL (TEMOVATE) 0.05 % cream Apply topically 2 (two) times daily as needed Apply topically to affected area twice daily.. 60 g 11 3 Active neomycin-bacitra trf-bvefehina-wl drocortisone (CORTISPORIN) 3.5-400-10,000 mg-unit/g-1% ophth ointmentIndicati ons:[place] eye disease of right eye Place 1 [...] Date Jelani rded Speak language other than Romanian at home Not on file 06/18/2023 Want [...] recommended imaging studies/procedures. At our facility, a [place] marker is positioned over a visible skin [...] of breast cancer COMPARISON STUDY: [facility] November 2023 through 2017 FINDINGS: Craniocaudal and [...] Most Recently Relevant to Health Maintenance Insurance [facility] Care Teams Rod Cup Filler Relationship Specialty Start Date End Date Dennis Contreras MD [address] [place] [address] PCP - General Family Medicine 12/02/23 Zain López PA-C [address] [place] [address] Orthopedic Surgery 07/27/23 Freddie Mcdonald MD [address] [place] [address] Sports Medicine 06/26/24
--- OUTSIDE RECORDS SUMMARY | 2025-01-09 12:04 | XMS_ITS | Encounter Summary ---
Author Organization [employer] ([place], [place], [place], [place]) Address [address] [place] [address] Care Team Providers Care Craniologist Name Role Phone Adelaide Clements MD Primary Care Provider [phone] Zain López PA-C Unavailable [phone] Dennis Contreras MD Primary Care Provider + [phone] Freddie Mcdonald MD Unavailable Reason for Visit * Reason Comments Medication Refill Encounter Details Date Type Department Care Team (Late st Contact Info) Description 02/21/2023 Refill [facility] Primary Care - [address] [address] Hasmukh Workman MD [address] [facility] [address] [place] [address] Social History Tobacco Use Types Packs/Day Years [...] on filedocumented in this encounter Care Teams Craniologist Relationship Specialty Start Date End Date Adelaide Clements MD PCP - General Family Medicine 01/20/23 12/01/23 Dennis Contreras MD [address] [place] [address] PCP - General Family Medicine 12/02/23 Zain López PA-C [address] [place] [address] Orthopedic Surgery 07/27/23 Freddie Mcdonald MD [address] [place] [address] Sports Medicine 06/26/24 documented as of this encounter
--- OUTSIDE RECORDS SUMMARY | 2025-01-09 12:04 | XMS_ITS | Encounter Summary ---
Author Organization [employer] ([place], [place], [place], [place]) Address [address] [place] [address] Care Team Providers Care Stereoptician Name Role Phone Adelaide Clements MD Primary Care Provider [phone] Zain López PA-C Unavailable [phone] Dennis Contreras MD Primary Care Provider + [phone] Freddie Mcdonald MD Unavailable Reason for Referral * Mammography (Routine) - Closed Specialty Diagnoses / Procedures Referred By Eladia gagnon Referred To Contact Diagnoses Visit for screening mammogram Procedures MM digital mammo screen with mariangel bilateral Nohelia Esquivel APRN [address] [place] [address] Phone: tel: fax: Referral ID Status Reason Start Date Expiration Date Visits Re quested Visits Authorized [id number] Closed 08/02/2023 01/29/2024 1 1 Encounter Details Date Type Department Care Team (Late st Contact Info) Description 08/02/2023 Outside Orders [facility] Central Scheduling [address] [place] [address] Nohelia Esquivel APRN [address] [place] [address] Visit for screening mammogram (Primary [...] Date Jelani rded Speak language other than [place]alander at home Not on file 06/18/2023 Want [...] the next mammogram. At our facility, a [place] marker is positioned over a visible skin [...] mammogram documented in this encounter Care Teams Stereoptician Relationship Specialty Start Date End Date Adelaide Clements MD PCP - General Family Medicine 01/20/23 12/01/23 Dennis Contreras MD [address] [place] [address] PCP - General Family Medicine 12/02/23 Zain López PA-C [address] [place] [address] Orthopedic Surgery 07/27/23 Freddie Mcdonald MD [address] [place] [address] Sports Medicine 06/26/24 documented as of this encounter
--- OUTSIDE RECORDS SUMMARY | 2025-01-09 12:04 | XMS_ITS | Encounter Summary ---
Author Organization [employer] ([place], [place], [place], [place]) Address [address] [place] [address] Care Team Providers Care Correction Officer Name Role Phone Adelaide Cleemnts MD Primary Care Provider [phone] Zain López PA-C Unavailable [phone] Dennis Contreras MD Primary Care Provider + [phone] Freddie Mcdonald MD Unavailable Reason for Visit * Reason Comments Medication Refill Encounter Details Date Type Department Care Team (Late st Contact Info) Description 11/19/2023 Refill [facility] Primary Care [address] [place] [address] Nohelia Esquivel APRN [address] [place] [address] Social History Tobacco Use Types [...] Date Jelani rded Speak language other than Guatemalan at home Not on file 06/18/2023 Want [...] on filedocumented in this encounter Care Teams Correction Officer Relationship Specialty Start Date End Date Adelaide Clements MD PCP - General Family Medicine 01/20/23 12/01/23 Dennis Contreras MD [address] [place], [place] [id number] PCP - General Family Medicine 12/02/23 Zain López PA-C [address] [place] [address] Orthopedic Surgery 07/27/23 Freddie Mcdonald MD [address] [place] [address] Sports Medicine 06/26/24 documented as of this encounter
== END 2025-01-09 23:59 | disposition home or self-care (01) ==
LOC: RAD 12:02
PROVIDERS: PCP Family Medicine; Visit Provider Family Medicine
DX: M25.552 Pain in left hip (principal); M25.551 Pain in right hip
CPT/HCPCS: 73502

== ENCOUNTER 2025-01-18 09:05 | Outpatient (CLI) | payer OTHER, SELFPAY ==
--- NOTE | 2025-01-18 09:07 | XR_ITS ---
FINAL REPORT CLINICAL HISTORY: reoccurring right femur pain COMPARISON: None FINDINGS: RIGHT FEMUR Two views demonstrate no acute fracture or dislocation. The joint spaces appear normal. No acute soft tissue abnormality is seen. IMPRESSION: No acute bony abnormality. Reviewed, Interpreted and Dictated by Gardenia Gregory MD Transcribed by Lamar Sotelo Authenticated and [facility]
--- NOTE | 2025-01-18 09:07 | XR_ITS ---
FINAL REPORT CLINICAL HISTORY: reoccurring left femur pain COMPARISON: None FINDINGS: LEFT FEMUR Two views demonstrate no acute fracture or dislocation. The joint spaces appear normal. No acute soft tissue abnormality is seen. IMPRESSION: No acute bony abnormality. Reviewed, Interpreted and Dictated by Gardenia Gregory MD Transcribed by Lamar Sotelo Authenticated and [facility]
--- OUTSIDE RECORDS SUMMARY | 2025-01-18 09:09 | XMS_ITS | Encounter Summary ---
Author Organization [employer] ([place], [place], [place], [place]) Address [address] [place] [address] Care Team Providers Care Party Plan Salesperson Name Role Phone Alejandrina Flores MD Primary Care Provider + Adelaide Clements MD Primary Care Provider [phone] Zain López PA-C Unavailable [phone] Dennis Contreras MD Primary Care Provider [phone] Freddie Mcdonald MD Unavailable Reason for Referral * Mammography (Routine) - Closed Specialty Diagnoses / Procedures Referred By Eladia t Referred To Contact Diagnoses Encounter for screening mammogram for malignant neoplasm of breast Procedures MM digital mammo screen with mariangel bilateral Alejandrina Flores MD [address] [facility] [address] [place] [address] Phone: tel: fax: Referral ID Status Reason Start Date Expiration Date Visits Re quested Visits Authorized [id number] Closed 06/29/2022 12/26/2022 1 1 Encounter Details Date Type Department Care Team (Late st Contact Info) Description 06/29/2022 Outside Orders [facility] Central Scheduling [address] [place] [address] Alejandrina Flores MD [address] [facility] [address] [place], [place] [id number] Encounter for screening mammogram for malignant neoplasm [...] the next mammogram. At our facility, a [place] marker is positioned over a visible skin lesion and a linear marker is used to indicate a scar. A triangular marker is placed on a self reported palpable finding. Narrative 07/17/2022 5:50 PM EST PROCEDURE: Digital screening mammogram with Digital Breast Tomosynthesis (DBT). REASON FOR EXAM: Routine screening. FAMILY HISTORY: Intermediate Risk family history of breast cancer. COMPARISON STUDY: 2017 from [facility] FINDINGS: Craniocaudal and mediolateral oblique images [...] breast documented in this encounter Care Teams Party Plan Salesperson Relationship Specialty Start Date End Date Alejandrina Flores MD [address] [facility] [address] [place] [address] PCP - General Obstetrics and Gynecology 07/17/2201/05 Adelaide Clements MD [address] [facility] [address] [place] [address] PCP - General Family Medicine 01/20/23 12/01/23 Dennis Contreras MD [address] [place] [address] PCP - General Family Medicine 12/02/23 Zain López PA-C [address] [place] [address] Orthopedic Surgery 07/27/23 Freddie Mcdonald MD [address] [place] [address] Sports Medicine 06/26/24 documented as of this encounter
--- OUTSIDE RECORDS SUMMARY | 2025-01-18 09:09 | XMS_ITS | Encounter Summary ---
Author Organization [employer] ([place], [place], [place], [place]) Address [address] [place] [address] Care Team Providers Care Air Quality Instrument Specialist Name Role Phone Adelaide Clements MD Primary Care Provider [phone] Zain López PA-C Unavailable [phone] Dennis Contreras MD Primary Care Provider + [phone] Freddie Mcdonald MD Unavailable Reason for Visit * Reason Onset Date Comments Medication Refill 05/24/2023 Encounter Details Date Type Department Care Team (Late st Contact Info) Description 05/24/2023 Refill [facility] Primary Care [address] [address] Hasmukh Workman MD [address] [place] [address] Social History Tobacco Use Types Packs/Day Years [...] on filedocumented in this encounter Care Teams Air Quality Instrument Specialist Relationship Specialty Start Date End Date Adelaide Clements MD PCP - General Family Medicine 01/20/23 12/01/23 Dennis Contreras MD [address] [place] [address] PCP - General Family Medicine 12/02/23 Zain López PA-C [address] [place] [address] Orthopedic Surgery 07/27/23 Freddie Mcdonald MD [address] [place] [address] Sports Medicine 06/26/24 documented as of this encounter
--- OUTSIDE RECORDS SUMMARY | 2025-01-18 09:09 | XMS_ITS | Encounter Summary ---
Author Organization [employer] ([place], [place], [place], [place]) Address [address] [place] [address] Care Team Providers Care Product Distribution Specialist Name Role Phone Adelaide Clements MD Primary Care Provider [phone] Zain López PA-C Unavailable [phone] Denins Contreras MD Primary Care Provider + [phone] Freddie Mcdonald MD Unavailable Reason for Visit * Reason Onset Date Comments Medication Refill 11/18/2023 Encounter Details Date Type Department Care Team (Late st Contact Info) Description 11/18/2023 Refill [facility] Primary Care [address] [place] [address] Nohelia Esquivel APRN [address] [place] [address] Social History Tobacco Use [...] Date Jelani rded Speak language other than Chilean at home Not on file 06/18/2023 Want [...] on filedocumented in this encounter Care Teams Product Distribution Specialist Relationship Specialty Start Date End Date Adelaide Clements MD PCP - General Family Medicine 01/20/23 12/01/23 Dennis Contreras MD [address] [place] [address] PCP - General Family Medicine 12/02/23 Zain López PA-C [address] [place] [address] Orthopedic Surgery 07/27/23 Freddie Mcdonald MD [address] [place] [address] Sports Medicine 06/26/24 documented as of this encounter
--- OUTSIDE RECORDS SUMMARY | 2025-01-18 09:09 | XMS_ITS | Clinical Summary ---
Author Organization [employer] ([place], [place], [place], [place]) Address [address] [place] [address] Care Team Providers Care Buzzle Buffer Name Role Phone Zain López PA-C Unavailable [phone] Dennis Contreras MD Primary Care Provider [phone] Freddie Mcdonald MD Unavailable Allergies Active Allergy Reactions Criticality Noted Date Comments Latex 09/24/2021 Medications clobetasoL (TEMOVATE) 0.05 % cream Apply topically 2 (two) times daily as needed Apply topically to affected area twice daily.. 60 g 11 3 Active neomycin-bacitra fom-hcflsykcc-be drocortisone (CORTISPORIN) 3.5-400-10,000 mg-unit/g-1% ophth ointmentIndicati ons:[place] eye disease of right eye Place 1 [...] 07/21/2019 Encounter for screening for lipoid disorders Family History Medical History Relation Name Comments Alcohol abuse Father Breast cancer Maternal Grandmother No Known Problem Mother Relation Name Status Comments Father Maternal Grandfather Maternal Grandmother Mother Alive Social History Tobacco Use Types Packs/Day Years Used Date Smoking Tobacco: Former Cigarettes 2 30 1 2009 Smokeless Tobacco: Never Tobacco Cessation:Counseling Given: Not Answered Comments:vapes Alcohol Use Standard Drinks/Week Comments Never 0 (1 standard drink = 0.6 oz pur e alcohol) Family and Community Support Answer Yifan e Recorded Help with Day to Day Activities Not on file 06/18/2023 Feeling Lonely or Isolated Not on file 06/18 Educational Attainment Answer Date Jelani rded Speak language other than [place] Islander at home Not on file 06/18/2023 Want [...] recommended imaging studies/procedures. At our facility, a [place] tribe marker is positioned over a visible [...] family history of breast cancer COMPARISON STUDY: [facility] November 2023 through 2017 FINDINGS: Craniocaudal and [...] / Unknown us Historical Provider PATHOLOGY/CYTOLOGY ORDERA BLES Final Result [facility] from Last 3 Months or Most Recently Relevant to Health Maintenance Insurance [facility] Care Teams Buzzle Buffer Relationship Specialty Start Date End Date Dennis Contreras MD [address] [place] [address] PCP - General Family Medicine 12/02/23 Zain López PA-C [address] [place] [address] Orthopedic Surgery 07/27/23 Freddie Mcdonald MD [address] [place] [address] Sports Medicine 06/26/24
--- OUTSIDE RECORDS SUMMARY | 2025-01-18 09:09 | XMS_ITS | Encounter Summary ---
Author Organization [employer] ([place], [place], [place], [place]) Address [address] [place] [address] Care Team Providers Care Well Digger Name Role Phone Adelaide Clements MD Primary Care Provider [phone] Zain López PA-C Unavailable [phone] Dennis Contreras MD Primary Care Provider + [phone] Freddie Mcdonald MD Unavailable Reason for Visit * Reason Comments Medication Refill Encounter Details Date Type Department Care Team (Late st Contact Info) Description 11/19/2023 Refill [facility] Primary Care [address] [place] [address] Nohelia Esquivel APRN [address] [place] [address] Social History Tobacco Use Types [...] Date Jelani rded Speak language other than Gabonese at home Not on file 06/18/2023 Want [...] on filedocumented in this encounter Care Teams Well Digger Relationship Specialty Start Date End Date Adelaide Clements MD PCP - General Family Medicine 01/20/23 12/01/23 Dennis Contreras MD [address] [place], [place] [id number] PCP - General Family Medicine 12/02/23 Zain López PA-C [address] [place] [address] Orthopedic Surgery 07/27/23 Freddie Mcdonald MD [address] [place] [address] Sports Medicine 06/26/24 documented as of this encounter
--- OUTSIDE RECORDS SUMMARY | 2025-01-18 09:09 | XMS_ITS | Encounter Summary ---
Author Organization [employer] ([place], [place], [place], [place]) Address [address] [place] [address] Care Team Providers Care Missile Tracking Technician Name Role Phone Zain López PA-C Unavailable [phone] Dennis Contreras MD Primary Care Provider + Freddie Mcdonald MD Unavailable Reason for Visit * Reason Comments Medication Refill Encounter Details Date Type Department Care Team (Late st Contact Info) Description 02/16/2024 Refill [facility] Primary Care [address] [place] [address] Nohelia Esquivel APRN [address] [place] [address] Intractable migraine with aura without [...] Date Jelani rded Speak language other than Swazi at home Not on file 06/18/2023 Want [...] migrainosus documented in this encounter Care Teams Missile Tracking Technician Relationship Specialty Start Date End Date Dennis Contreras MD [address] [place] [address] PCP - General Family Medicine 12/02/23 Zain López PA-C [address] [place] [address] Orthopedic Surgery 07/27/23 Freddie Mcdonald MD [address] [place] [address] Sports Medicine 06/26/24 documented as of this encounter
--- OUTSIDE RECORDS SUMMARY | 2025-01-18 09:09 | XMS_ITS | Encounter Summary ---
Author Organization [employer] ([place], [place], [place], [place]) Address [address] [place] [address] Care Team Providers Care Hemotherapist Name Role Phone Adelaide Clements MD Primary Care Provider [phone] Zain López PA-C Unavailable [phone] Dennis Contreras MD Primary Care Provider + [phone] Freddie Mcdonald MD Unavailable Reason for Referral * Mammography (Routine) - Closed Specialty Diagnoses / Procedures Referred By Eladia gagnon Referred To Contact Diagnoses Visit for screening mammogram Procedures MM digital mammo screen with mariangel bilateral Nohelia Esquivel APRN [address] [place] [address] Phone: tel: fax: Referral ID Status Reason Start Date Expiration Date Visits Re quested Visits Authorized [id number] Closed 08/02/2023 01/29/2024 1 1 Encounter Details Date Type Department Care Team (Late st Contact Info) Description 08/02/2023 Outside Orders [facility] Central Scheduling [address] [place] [address] Nohelia Esquivel APRN [address] [place] [address] Visit for screening mammogram (Primary [...] Date Jelani rded Speak language other than [place]vorian at home Not on file 06/18/2023 Want [...] the next mammogram. At our facility, a [place] marker is positioned over a visible skin [...] mammogram documented in this encounter Care Teams Hemotherapist Relationship Specialty Start Date End Date Adelaide Clements MD PCP - General Family Medicine 01/20/23 12/01/23 Dennis Contreras MD [address] [place] [address] PCP - General Family Medicine 12/02/23 Zain López PA-C [address] [place] [address] Orthopedic Surgery 07/27/23 Freddie Mcdonald MD [address] [place] [address] Sports Medicine 06/26/24 documented as of this encounter
--- OUTSIDE RECORDS SUMMARY | 2025-01-18 09:09 | XMS_ITS | Referral Summary ---
Author Organization [employer] ([place], [place], [place], [place]) Address [address] [place] [address] Care Team Providers Care Customer Service Cashier Name Role Phone Zain López PA-C Unavailable [phone] Dennis Contreras MD Primary Care Provider [phone] Freddie Mcdonald MD Unavailable Allergies Active Allergy Reactions Criticality Noted Date Comments Latex 09/24/2021 Medications clobetasoL (TEMOVATE) 0.05 % cream Apply topically 2 (two) times daily as needed Apply topically to affected area twice daily.. 60 g 11 3 Active neomycin-bacitra ngm-jboapcrii-wx drocortisone (CORTISPORIN) 3.5-400-10,000 mg-unit/g-1% ophth ointmentIndicati ons:[place] eye disease of right eye Place 1 [...] Cigarettes 30 1 2009 Smokeless Tobacco: Never Tobacco [...] Date Jelani rded Speak language other than [place] at home Not on file 06/18/2023 Want [...] recommended imaging studies/procedures. At our facility, a [place] marker is positioned over a visible skin [...] breast cancer COMPARISON STUDY: [facility] November 2023 through 2017 FINDINGS: Craniocaudal [...] the benefit of computer aided detection (CAD). Cynhtia Rodriguez MD IMG MAMMOGRAPHY ORDERABLES Barbie wang Result * Liquid-based pap smear, screening (04/28/2019 12:00 AM EST) Genital CERVIX UTERI STRUCTURE / Unknown Historical Provider PATHOLOGY/CYTOLOGY ORDERA BLES Final Result [facility] from Last 3 Months or Most Recently Relevant to Health Maintenance Insurance [facility] Care Teams Customer Service Cashier Relationship Specialty Start Date End Date Dennis Contreras MD [address] [place] [address] PCP - General Family Medicine 12/02/23 Zain López PA-C [address] [place] [address] Orthopedic Surgery 07/27/23 Freddie Mcdonald MD [address] [place] [address] Sports Medicine 06/26/24
--- OUTSIDE RECORDS SUMMARY | 2025-01-18 09:09 | XMS_ITS | Encounter Summary ---
Author Organization [employer] ([place], [place], [place], [place]) Address [address] [place] [address] Care Team Providers Care Secretarial Teacher Name Role Phone Adelaide Clements MD Primary Care Provider [phone] Zain López PA-C Unavailable [phone] Dennis Contreras MD Primary Care Provider + [phone] Freddie Mcdonald MD Unavailable Reason for Visit * Reason Comments Medication Refill Encounter Details Date Type Department Care Team (Late st Contact Info) Description 02/21/2023 Refill [facility] Primary Care - [address] [address] Hasmukh Workman MD [address] [facility] [address] [place] [address] Social History Tobacco Use Types Packs/Day Years [...] on filedocumented in this encounter Care Teams Secretarial Teacher Relationship Specialty Start Date End Date Adelaide Clements MD PCP - General Family Medicine 01/20/23 12/01/23 Dennis Contreras MD [address] [place] [address] PCP - General Family Medicine 12/02/23 Zain López PA-C [address] [place] [address] Orthopedic Surgery 07/27/23 Freddie Mcdonald MD [address] [place] [address] Sports Medicine 06/26/24 documented as of this encounter
== END 2025-01-18 23:59 | disposition home or self-care (01) ==
LOC: RAD 09:05
PROVIDERS: PCP Family Medicine; Visit Provider Physician Assistant Surgical
DX: M79.651 Pain in right thigh (principal); M79.652 Pain in left thigh
CPT/HCPCS: 73552